=== PATIENT | male | born 1935 | race Caucasian/White ===

== ENCOUNTER 2019-11-27 13:14 | Inpatient (IN) | payer MEDICARE, BC ==
[2019-11-27] MEDS ORDERED: Aspirin 81 MG Tab.Chew PO ONE (13:28)
--- NOTE | 2019-11-27 13:32 | EDM.PDOC ---
ED HPI GENERAL MEDICAL PROBLEM - General Chief Complaint: Chest Pain Stated Complaint: [facility] Time Seen by Provider: 11/27/19 13:29 Source of Information: Reports: Patient History Limitations: Reports: No Limitations - History of Present Illness INITIAL COMMENTS - FREE TEXT/NARRATIVE: pt got very dizzy. He felt like his heart was racing and he has not had that in the past. He has had heart attacks in the past. 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 Onset: Today, Sudden, Other ( started mid morning. ) Duration: Hour(s): Location: Reports: Chest Associated Symptoms: Reports: Chest Pain, Other ( rapid heart beat. ) denies Pain Score (Numeric/FACES): 0 - Related Data Allergies Allergy/AdvReac Type Severity Reaction Status Date / Time No Known Allergies Allergy Verified 11/27/19 13:24 Home Meds: Home Meds Acetaminophen/HYDROcodone [HYDROcodone-Acetaminophen 5-500] 5 - 325 mg PO Q4H PRN 06/13/14 [History] Multivitamin [Multi-Vitamin Daily] 1 tab PO DAILY 06/13/14 [History] Omeprazole [priLOSEC OTC] 20 mg PO DAILY 06/13/14 [History] Zolpidem [Ambien] 10 mg PO BEDTIME 06/13/14 [History] Aspirin [Children's Aspirin] 81 mg PO DAILY 07/13/15 [History] Cyanocobalamin (Vitamin B-12) [Vitamin B-12] 500 mcg PO DAILY 07/13/15 [History] Cranberry Conc/Ascorbic Acid [Cranberry Concentrate Softgel] 1 cap PO DAILY [History] Past Medical History HEENT History: Reports: Other (See Below) Other HEENT History: CA, 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 Cardiovascular History: Reports: [place] Gastrointestinal History: Reports: GERD Genitourinary History: Reports: None Musculoskeletal History: Reports: Arthritis Oncologic (Cancer) History: Reports: Prostate Other Oncologic History: eye right, skin - Infectious Disease History Infectious Disease History: Reports: Chicken Pox, Measles, Mumps - Past Surgical History Head Surgeries/Procedures: Reports: None HEENT Surgical History: Reports: Cataract Surgery Other HEENT Surgeries/Procedures: tumor behind right eye removed Cardiovascular Surgical History: Reports: None GI Surgical History: Reports: Appendectomy, Cholecystectomy, Hernia, Inguinal Male Surgical History: Reports: Other (See Below) Other Male Surgeries/Procedures: prostate removal due to cancer. sphincter 800 implant Musculoskeletal Surgical History: Reports: None Social & Family History - Family History Family Medical History: Noncontributory - Caffeine Use Caffeine Use: Reports: Coffee ED ROS GENERAL - Review of Systems Review Of Systems: See Below Constitutional: Reports: Weakness, Other (pt has nearly passed out because of weakness) HEENT: Reports: No Symptoms Respiratory: Reports: Shortness of Breath Cardiovascular: Reports: Chest Pain, Palpitations, Other (pt had a near syncope episode. ) Endocrine: Reports: No Symptoms GI/Abdominal: Reports: No Symptoms : Reports: No Symptoms Musculoskeletal: Reports: No Symptoms Skin: Reports: No Symptoms ED EXAM, GENERAL - Physical Exam Exam: See Below Free Text/Narrative:: t arrived with a history of several hours of rapid heart beat. He felt very weak and he nearly passed out; Exam Limited By: No Limitations General Appearance: Alert, Mild Distress, Other (pt did have a fairly brief episode of upper abdomanal pain and left chest pain. ) Ears: Normal TMs Nose: Normal Inspection Throat/Mouth: Normal Inspection Head: Atraumatic Neck: Normal Inspection Respiratory/Chest: Other (pt did feel sob when his heart was so rapid. ) Cardiovascular: Irregularly Irregular, Other ( rate is 146) GI/Abdominal: Soft, Non-Tender (Male) Exam: Deferred Rectal (Males) Exam: Deferred Back Exam: Normal Inspection Extremities: Normal Inspection Neurological: Alert, Oriented, Normal Cognition, Other (pt is very upset regarding his being in hospice. ) Psychiatric: Anxious Course - Vital Signs Last Recorded V/S: Last Vital Signs Temp 35.9 C 11/27/19 13:22 Pulse 59 L 11/27/19 15:05 Resp 10 L 11/27/19 15:05 BP 123/78 11/27/19 15:05 Pulse Ox 90 L 11/27/19 15:05 - Orders/Labs/Meds Orders: Active Orders 24 hr Category Date Time Status EKG Documentation Completion [RC] ASDIRECTED Care 11/27/19 13:28 Active EKG Documentation Completion [RC] ASDIRECTED Care 11/27/19 14:20 Active UA W/MICROSCOPIC [URIN] Urgent Lab 11/27/19 13:25 Ordered Sodium Chloride 0.9% [Normal Saline] 1,000 ml Med 11/27/19 13:30 Active IV ASDIRECTED EKG 12 Lead [EK] Routine Ther 11/27/19 13:28 Ordered EKG 12 Lead [EK] Routine Ther 11/27/19 14:20 Ordered Medication Orders Sodium Chloride (Normal Saline) 1,000 mls @ 500 mls/hr IV ASDIRECTED LEANDRO Last Admin: 11/27/19 13:45 Dose: 500 mls/hr Labs: Laboratory Tests 11/27/19 11/27/19 11/27/19 Range/Units 13:35 13:35 13:35 WBC 4.7 (4.5-11.0) K/uL RBC 4.29 L (4.30-5.90) M/uL Hgb 13.5 (12.0-15.0) g/dL Hct 42.2 (40.0-54.0) % MCV 98 (80-98) fL MCH 32 H (27-31) pg MCHC 32 (32-36) % Plt Count 163 (150-400) K/uL Neut % (Auto) 77 H (36-66) % Lymph % (Auto) 15 L (24-44) % [place] % (Auto) 8 H (2-6) % Eos % (Auto) 1 L (2-4) % Baso % (Auto) 0 (0-1) % Sodium 140 (140-148) mmol/L Potassium 4.3 (3.6-5.2) mmol/L Chloride 104 (100-108) mmol/L Carbon Dioxide 27 (21-32) mmol/L Anion Gap 8.8 (5.0-14.0) mmol/L BUN 17 (7-18) mg/dL Creatinine 0.9 (0.8-1.3) mg/dL Est Cr Clr Drug Dosing 62.93 mL/min Estimated GFR (MDRD) > 60 (>60) Glucose 90 (74-106) mg/dL Calcium 8.4 L (8.5-10.1) mg/dL Total Bilirubin 0.6 (0.2-1.0) mg/dL AST 16 (15-37) U/L ALT 14 (12-78) U/L Alkaline Phosphatase 60 (46-116) U/L Troponin I 0.055 (0.000-0.056) ng/mL NT-Pro-B Natriuret Pep (5-450) pg/mL Total Protein 6.6 (6.4-8.2) g/dL Albumin 3.4 (3.4-5.0) g/dL Globulin 3.2 (2.3-3.5) g/dL Albumin/Globulin Ratio 1.1 L (1.2-2.2) TSH, Ultra Sensitive 0.716 (0.358-3.740) uIU/mL 11/27/19 11/27/19 Range/Units 13:35 15:17 WBC (4.5-11.0) K/uL RBC (4.30-5.90) M/uL Hgb (12.0-15.0) g/dL Hct (40.0-54.0) % MCV (80-98) fL MCH (27-31) pg MCHC (32-36) % Plt Count (150-400) K/uL Neut % (Auto) (36-66) % Lymph % (Auto) (24-44) % [place] % (Auto) (2-6) % Eos % (Auto) (2-4) % Baso % (Auto) (0-1) % Sodium (140-148) mmol/L Potassium (3.6-5.2) mmol/L Chloride (100-108) mmol/L Carbon Dioxide (21-32) mmol/L Anion Gap (5.0-14.0) mmol/L BUN (7-18) mg/dL Creatinine (0.8-1.3) mg/dL Est Cr Clr Drug Dosing mL/min Estimated GFR (MDRD) (>60) Glucose (74-106) mg/dL Calcium (8.5-10.1) mg/dL Total Bilirubin (0.2-1.0) mg/dL AST (15-37) U/L ALT (12-78) U/L Alkaline Phosphatase (46-116) U/L Troponin I 0.099 H* (0.000-0.056) ng/mL NT-Pro-B Natriuret Pep 526 H (5-450) pg/mL Total Protein (6.4-8.2) g/dL Albumin (3.4-5.0) g/dL Globulin (2.3-3.5) g/dL Albumin/Globulin Ratio (1.2-2.2) TSH, Ultra Sensitive (0.358-3.740) uIU/mL Meds: Medications Generic Name Dose Route Start Last Admin Trade Name Johnathan PRN Reason Stop Dose Admin Sodium Chloride 1,000 mls @ 500 mls/hr 11/27/19 13:30 11/27/19 13:45 Normal Saline IV 500 mls/hr ASDIRECTED LEANDRO Administration Discontinued Medications Generic Name Dose Route Start Last Admin Trade Name Johnathan PRN Reason Stop Dose Admin Aspirin 324 mg 11/27/19 13:28 11/27/19 13:46 Aspirin PO 11/27/19 13:29 324 mg ONETIME ONE Administration Diltiazem HCl 7.5 mg 11/27/19 13:34 11/27/19 13:57 Diltiazem IVPUSH 11/27/19 13:35 Not Given ONETIME ONE - Re-Assessments/Exams Free Text/Narrative Re-Assessment/Exam: 11/27/19 15:12 pt was found to be in atrial fib at 146. His bps were on the low side. He was given fluids and cardizem was ordered. Before it was given he converted to a sinus rhythm. pt has no further discomfort . His trop was found to be .055 11/27/19 15:54 second trop was .099-- He will be admitted and followed here. Departure - Departure Time of Disposition: 15:54 Disposition: Admitted As Inpatient 67 Condition: Fair Clinical Impression: Atrial fib/flutter, transient, Elevated troponin Referrals: PCP,None [Primary Care Provider] - Forms: ED Department Discharge Care Plan Goals: admit to Dr Simpson Sepsis Event Note - Evaluation Sepsis Screening Result: No Definite Risk - Focused Exam Vital Signs: Vital Signs Temp Pulse Resp BP Pulse Ox 11/27/19 15:05 59 L 10 L 123/78 90 L 11/27/19 14:45 60 12 114/68 96 11/27/19 13:22 35.9 C 146 H 37 H 117/73 99 Date Exam was Performed: 11/27/19 Time Exam was Performed: 15:54 - My Orders Last 24 Hours: My Active Orders 11/27/19 13:25 UA W/MICROSCOPIC [URIN] Urgent 11/27/19 13:28 EKG Documentation Completion [RC] ASDIRECTED EKG 12 Lead [EK] Routine 11/27/19 13:30 Sodium Chloride 0.9% [Normal Saline] 1,000 ml IV ASDIRECTED 11/27/19 14:20 EKG Documentation Completion [RC] ASDIRECTED EKG 12 Lead [EK] Routine - Assessment/Plan Last 24 Hours: My Active Orders 11/27/19 13:25 UA W/MICROSCOPIC [URIN] Urgent 11/27/19 13:28 EKG Documentation Completion [RC] ASDIRECTED EKG 12 Lead [EK] Routine 11/27/19 13:30 Sodium Chloride 0.9% [Normal Saline] 1,000 ml IV ASDIRECTED 11/27/19 14:20 EKG Documentation Completion [RC] ASDIRECTED EKG 12 Lead [EK] Routine
[2019-11-27] MEDS: Sodium Chloride 0.9% 1,000 ML IV SCH ×2 (13:45→18:12)
[2019-11-27] MEDS: Diltiazem 25 MG/5 ML SDV IVPUSH ONE ×2 (13:48→13:57)
--- NOTE | 2019-11-27 14:47 | CRLCR ---
INDICATIONS: Shortness of breath and rapid heart rate. TECHNIQUE: Chest 2 frontal views. COMPARISON: None available. FINDINGS: No pneumothorax, pleural effusion or airspace consolidation. Suspected emphysema and sequela of prior granulomatous disease. Cardiac and mediastinal contours are within normal limits. Upper abdomen and osseous structures as imaged show no acute abnormality. Bone demineralization and degenerative changes. IMPRESSION: No evidence of acute cardiopulmonary disease. Dictated by Adalberto Ventura MD @ 11/27/2019 2:46:21 PM Dictated by: Adalberto Ventura MD @ 11/27/2019 14:46:39 (Electronically Signed)
--- NOTE | 2019-11-27 17:19 | PCM.HP.2 ---
H&P History of Present Illness - General Date of Service: 11/27/19 Source of Information: Patient, EMS, EMS Notes Reviewed History Limitations: Reports: No Limitations - History of Present Illness Initial Comments - Free Text/Narative: This morning he got up at 9 AM and had severe shortness of breath and generalized weakness. He sat for a while then fell asleep for 1/2 hr. When he woke up he was still weak and finally called the EMS and was brought into the ER. Upon arrival he was found to be in Atrial fib with a raped heart rate and Hypotension. He then converted spontaneously. His , Sherron, is in the NH and he signed her in to hospice care and he has been thinking he make the wrong decision and has been upset. He had sharp chest pain with nausea. Onset of Symptoms: Reports: Today, Sudden Duration of Symptoms: Reports: Hour(s): Worsens with: Reports: Movement Associated Symptoms: Reports: Shortness of Breath, Weakness denies Pain Score (Numeric/FACES): 0 - Related Data Allergies/Adverse Reactions: Allergies Allergy/AdvReac Type Severity Reaction Status Date / Time No Known Allergies Allergy Verified 11/27/19 13:24 Home Medications: Home Meds Acetaminophen/HYDROcodone [HYDROcodone-Acetaminophen 5-500] 5 - 325 mg PO Q4H PRN 06/13/14 [History] Multivitamin [Multi-Vitamin Daily] 1 tab PO DAILY 06/13/14 [History] Omeprazole [priLOSEC OTC] 20 mg PO DAILY 06/13/14 [History] Zolpidem [Ambien] 10 mg PO BEDTIME 06/13/14 [History] Aspirin [Children's Aspirin] 81 mg PO DAILY 07/13/15 [History] Cyanocobalamin (Vitamin B-12) [Vitamin B-12] 500 mcg PO DAILY 07/13/15 [History] Cranberry Conc/Ascorbic Acid [Cranberry Concentrate Softgel] 1 cap PO DAILY [History] Past Medical History HEENT History: Reports: Other (See Below) Other HEENT History: CA, 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 Cardiovascular History: Reports: [place] Gastrointestinal History: Reports: GERD Genitourinary History: Reports: None Musculoskeletal History: Reports: Arthritis Psychiatric History: Reports: Anxiety, Depression Oncologic (Cancer) History: Reports: Prostate Other Oncologic History: eye right, skin - Infectious Disease History Infectious Disease History: Reports: Chicken Pox, Measles, Mumps - Past Surgical History Head Surgeries/Procedures: Reports: None HEENT Surgical History: Reports: Cataract Surgery Other HEENT Surgeries/Procedures: tumor behind right eye removed Cardiovascular Surgical History: Reports: None GI Surgical History: Reports: Appendectomy, Cholecystectomy, Hernia, Inguinal Male Surgical History: Reports: Other (See Below) Other Male Surgeries/Procedures: prostate removal due to cancer. sphincter 800 implant Musculoskeletal Surgical History: Reports: None Social & Family History - Family History Family Medical History: Noncontributory - Tobacco Use Smoking Status *Q: Never Smoker Second Hand Smoke Exposure: No - Caffeine Use Caffeine Use: Reports: Coffee - Recreational Drug Use Recreational Drug Use: No H&P Review of Systems - Review of Systems: Review Of Systems: See Below General: Reports: Weakness Pulmonary: Reports: Shortness of Breath, Pleuritic Chest Pain Cardiovascular: Reports: Chest Pain, Dyspnea on Exertion Gastrointestinal: Reports: Nausea Genitourinary: Reports: No Symptoms Musculoskeletal: Reports: No Symptoms Skin: Reports: No Symptoms Psychiatric: Reports: Anxiety Neurological: Reports: Weakness Exam - Exam Exam: See Below - Vital Signs Vital Signs: Last Vital Signs Temp 96.7 F 11/27/19 13:22 Pulse 57 L 11/27/19 16:05 Resp 17 11/27/19 16:05 BP 138/71 11/27/19 16:05 Pulse Ox 100 11/27/19 16:05 Weight: 155 lb - Exam General: Alert, Oriented, 4 HEENT: PERRLA, Hearing Intact, Mucosa Moist & [place], Nares Patent, Normal Nasal Septum, Posterior Pharynx Clear, Conjunctiva Clear, EOMI, EACs Clear, TMs Clear Neck: Supple, Trachea Midline, 2 Lungs: Clear to Auscultation, Normal Respiratory Effort Cardiovascular: Regular Rate, Regular Rhythm GI/Abdominal Exam: Normal Bowel Sounds, Soft, Non-Tender, No Organomegaly, No Distention, No Abnormal Bruit, No Mass, Pelvis Stable Back Exam: Normal Inspection, Full Range of Motion, NT Extremities: Normal Inspection, Normal Range of Motion, Non-Tender, No Pedal Edema, Normal Capillary Refill Peripheral Pulses: 1+: Radial (L), Radial (R) Skin: Warm, Dry, Intact Neurological: Reflexes Equal Bilateral Neuro Extensive - Mental Status: Alert, Oriented x3, Normal Mood/Affect, Normal Cognition, Memory Intact Neuro Extensive - Motor, Sensory, Reflexes: CN II-XII Intact, Normal Gait, Normal Reflexes DTR: 1+: Bicep (L), Bicep (R), 3+: Achilles (R) Psychiatric: Alert, Normal Affect - Patient Data Lab Results Last 24 hrs: Laboratory Results - last 24 hr 11/27/19 11/27/19 11/27/19 Range/Units 13:25 13:35 13:35 WBC 4.7 (4.5-11.0) K/uL RBC 4.29 L (4.30-5.90) M/uL Hgb 13.5 (12.0-15.0) g/dL Hct 42.2 (40.0-54.0) % MCV 98 (80-98) fL MCH 32 H (27-31) pg MCHC 32 (32-36) % Plt Count 163 (150-400) K/uL Neut % (Auto) 77 H (36-66) % Lymph % (Auto) 15 L (24-44) % [place] % (Auto) 8 H (2-6) % Eos % (Auto) 1 L (2-4) % Baso % (Auto) 0 (0-1) % Sodium 140 (140-148) mmol/L Potassium 4.3 (3.6-5.2) mmol/L Chloride 104 (100-108) mmol/L Carbon Dioxide 27 (21-32) mmol/L Anion Gap 8.8 (5.0-14.0) mmol/L BUN 17 (7-18) mg/dL Creatinine 0.9 (0.8-1.3) mg/dL Est Cr Clr Drug Dosing 62.93 mL/min Estimated GFR (MDRD) > 60 (>60) Glucose 90 (74-106) mg/dL Calcium 8.4 L (8.5-10.1) mg/dL Total Bilirubin 0.6 (0.2-1.0) mg/dL AST 16 (15-37) U/L ALT 14 (12-78) U/L Alkaline Phosphatase 60 (46-116) U/L Troponin I (0.000-0.056) ng/mL NT-Pro-B Natriuret Pep (5-450) pg/mL Total Protein 6.6 (6.4-8.2) g/dL Albumin 3.4 (3.4-5.0) g/dL Globulin 3.2 (2.3-3.5) g/dL Albumin/Globulin Ratio 1.1 L (1.2-2.2) TSH, Ultra Sensitive 0.716 (0.358-3.740) uIU/mL Urine Color Yellow (YELLOW) Urine Appearance Clear (CLEAR) Urine pH 6.0 (5.0-8.0) Ur Specific [place] 1.020 (1.008-1.030) Urine Protein Negative (NEGATIVE) mg/dL Urine Glucose (UA) Negative (NEGATIVE) mg/dL Urine Ketones 40 H (NEGATIVE) mg/dL Urine Occult Blood Trace-intact H (NEGATIVE) Urine Nitrite Negative (NEGATIVE) Urine Bilirubin Negative (NEGATIVE) Urine Urobilinogen 0.2 (0.2-1.0) EU/dL Ur Leukocyte Esterase Negative (NEGATIVE) Urine RBC Not seen (0-5) Urine WBC Not seen (0-5) Ur Epithelial Cells Rare Amorphous Sediment Not seen Urine Bacteria Rare Urine Mucus Not seen 11/27/19 11/27/19 11/27/19 Range/Units 13:35 13:35 15:17 WBC (4.5-11.0) K/uL RBC (4.30-5.90) M/uL Hgb (12.0-15.0) g/dL Hct (40.0-54.0) % MCV (80-98) fL MCH (27-31) pg MCHC (32-36) % Plt Count (150-400) K/uL Neut % (Auto) (36-66) % Lymph % (Auto) (24-44) % [place] % (Auto) (2-6) % Eos % (Auto) (2-4) % Baso % (Auto) (0-1) % Sodium (140-148) mmol/L Potassium (3.6-5.2) mmol/L Chloride (100-108) mmol/L Carbon Dioxide (21-32) mmol/L Anion Gap (5.0-14.0) mmol/L BUN (7-18) mg/dL Creatinine (0.8-1.3) mg/dL Est Cr Clr Drug Dosing mL/min Estimated GFR (MDRD) (>60) Glucose (74-106) mg/dL Calcium (8.5-10.1) mg/dL Total Bilirubin (0.2-1.0) mg/dL AST (15-37) U/L ALT (12-78) U/L Alkaline Phosphatase (46-116) U/L Troponin I 0.055 0.099 H* (0.000-0.056) ng/mL NT-Pro-B Natriuret Pep 526 H (5-450) pg/mL Total Protein (6.4-8.2) g/dL Albumin (3.4-5.0) g/dL Globulin (2.3-3.5) g/dL Albumin/Globulin Ratio (1.2-2.2) TSH, Ultra Sensitive (0.358-3.740) uIU/mL Urine Color (YELLOW) Urine Appearance (CLEAR) Urine pH (5.0-8.0) Ur Specific [place] (1.008-1.030) Urine Protein (NEGATIVE) mg/dL Urine Glucose (UA) (NEGATIVE) mg/dL Urine Ketones (NEGATIVE) mg/dL Urine Occult Blood (NEGATIVE) Urine Nitrite (NEGATIVE) Urine Bilirubin (NEGATIVE) Urine Urobilinogen (0.2-1.0) EU/dL Ur Leukocyte Esterase (NEGATIVE) Urine RBC (0-5) Urine WBC (0-5) Ur Epithelial Cells Amorphous Sediment Urine Bacteria Urine Mucus Result Diagrams: 11/27/19 13:35 11/27/19 13:35 Sepsis Event Note - Evaluation Sepsis Screening Result: No Definite Risk - Focused Exam Vital Signs: Vital Signs Temp Pulse Resp BP Pulse Ox 11/27/19 16:05 57 L 17 138/71 100 11/27/19 15:35 58 L 16 140/71 11/27/19 15:05 59 L 10 L 123/78 90 L 11/27/19 14:45 60 12 114/68 96 11/27/19 13:22 96.7 F 146 H 37 H 117/73 99 Date Exam was Performed: 11/27/19 Time Exam was Performed: 17:13 Problem List Initiated/Reviewed/Updated: Yes Orders Last 24hrs: Active Orders 24 hr Category Date Time Status EKG Documentation Completion [RC] ASDIRECTED Care 11/27/19 13:28 Active EKG Documentation Completion [RC] ASDIRECTED Care 11/27/19 14:20 Active Sodium Chloride 0.9% [Normal Saline] 1,000 ml Med 11/27/19 13:30 Active IV ASDIRECTED EKG 12 Lead [EK] Routine Ther 11/27/19 13:28 Ordered EKG 12 Lead [EK] Routine Ther 11/27/19 14:20 Ordered Medication Orders Sodium Chloride (Normal Saline) 1,000 mls @ 500 mls/hr IV ASDIRECTED LEANDRO Last Admin: 11/27/19 13:45 Dose: 500 mls/hr Assessment/Plan Comment:: Assessment/Plan: #1. Angina with Atrial fib. converted to NSR with elevation of Trop. I will admit him to the CCU and get a Lexiscan stress test tomorrow. Will alsok repeat the Trop in 8 hours. #2. Insomnia. uses Zolpidem for sleep aid. #3. Left foot pain. uses hydrocodone for pain relief. #4. GERD: Uses omeprazole for relief.
[2019-11-27] MEDS: Acetaminophen/HYDROcodone 325-5 MG Tab PO PRN (20:46)
[2019-11-27] MEDS ORDERED: Zolpidem 5 MG Tab PO SCH (21:00)
[2019-11-28] MEDS: Acetaminophen/HYDROcodone 325-5 MG Tab PO PRN ×2 (02:15→07:14)
[2019-11-28] MEDS ORDERED: Aminophylline 250 MG/10 ML SDV IVPUSH PRN (08:18)
[2019-11-28] MEDS ORDERED: Aspirin 81 MG Tab.EC PO SCH (09:00)
[2019-11-28] MEDS ORDERED: CRANBERRY PO SCH (09:00)
--- NOTE | 2019-11-28 10:59 | STRESS ---
DATE OF SERVICE: 11/28/2019 INDICATION: Jayda is an 83-year-old male, who came into the emergency room yesterday having angina, a rapid heart rate and was in atrial fibrillation. He has never had a similar problem before. He was in significant amount of stress, as the decision is made for his and put her on hospice. A Lexiscan stress test was advised. PROCEDURE IN DETAIL: The Lexiscan stress test was done. The standard protocol was followed. The resting electrocardiogram showed a sinus rate and rhythm. He was monitored throughout the entire time of exercise and rest. Lexiscan was given 0.4 mg in 5 mL followed by saline flush, followed by the Cardiolite given IV followed by a flush of saline. He was asymptomatic throughout the entire exercise and rest portion. The heart rate was 59 at the beginning of the test. At the end of the test, the heart rate was 85. Initial blood pressure was 158/88. At stage I, blood pressure was 161/76. Upon recovery at the end of 5 minutes, blood pressure was 143/88. There were no ST-segment or T-wave changes noted throughout the entire time. The accuracy of this test will be determined by the nuclear Medicine portion, which the report is pending. Dx. Angina with episode of Atrial Fib.R/O ASHD causing the Atrial fib or Dx. of Broken heart syndrome. Jeferson Simpson MD /[id number] MONA
[2019-11-28 13:05] VITALS: BP 139/65; PULSE 57
--- NOTE | 2019-11-28 13:34 | CRLNM ---
MYOCARDIAL PERFUSION SCAN 11/28/2019 CLINICAL HISTORY: 83-year-old male. Chest pain. Atrial fibrillation. TECHNIQUE: (Resting SPECT and stress gated SPECT with wall motion and ejection fraction) Stress: Pharmacologic - Lexiscan (0.4 mg) (IV) Dose (Stress/Rest): 30.5 mCi/10.9 mCi Tc-99m Sestamibi Tetrofosmin (IV) Comparison: None FINDINGS: There is good uptake of activity by the left ventricle. No left ventricular enlargement is noted. There is mild soft tissue attenuation. No other significant fixed or reversible defects are identified. The gated images demonstrate a normal left ventricular ejection fraction of approximately 65 percent. No regional wall motion these are identified. IMPRESSION: 1. There is no evidence of significant myocardial ischemia or infarction. 2. Normal left ventricular ejection fraction of approximately 65 percent. MARY KOHLER M.D. Transcribed: 12:26 p.m. [email or web address] PT/Dictated by: Mary Kohler MD @ 11/28/2019 11:09:00 AM (Electronically Signed)
--- NOTE | 2019-11-28 17:10 | PCM.PN ---
- General Info Date of Service: 11/28/19 Subjective Update: Had a Stress test this morning and was negative with an EF of 65%. He has no complaints. Functional Status: Reports: Pain Controlled - Review of Systems General: Reports: No Symptoms HEENT: Reports: No Symptoms Pulmonary: Reports: No Symptoms Cardiovascular: Reports: No Symptoms Gastrointestinal: Reports: No Symptoms Genitourinary: Reports: No Symptoms Musculoskeletal: Reports: No Symptoms Skin: Reports: No Symptoms Neurological: Reports: No Symptoms Psychiatric: Reports: No Symptoms - Patient Data Vitals - Most Recent: Last Vital Signs Temp 97.5 F 11/28/19 06:00 Pulse 57 L 11/28/19 12:00 Resp 12 11/28/19 12:00 BP 139/65 11/28/19 12:00 Pulse Ox 95 11/28/19 12:00 Weight - Most Recent: 155 lb I&O - Last 24 Hours: Intake & Output 11/28/19 11/28/19 11/28/19 06:59 14:59 22:59 Intake Total 600 Output Total 250 150 Balance -250 450 Med Orders - Current: Current Medications Discontinued Medications Hydrocodone Bitart/Acetaminophen ([place] 325-5 Mg) 1 tab PO Q4H PRN PRN Reason: PAIN Last Admin: 11/28/19 07:14 Dose: 1 tab Aminophylline (Aminophylline) 125 mg IVPUSH ONETIME PRN PRN Reason: Other Stop: 11/28/19 10:00 Aspirin (Aspirin) 324 mg PO ONETIME ONE Stop: 11/27/19 13:29 Last Admin: 11/27/19 13:46 Dose: 324 mg Aspirin (Halfprin) 81 mg PO DAILY [facility] Last Admin: 11/28/19 09:38 Dose: 81 mg Diltiazem HCl (Diltiazem) 7.5 mg IVPUSH ONETIME ONE Stop: 11/27/19 13:35 Last Admin: 11/27/19 13:57 Dose: Not Given Sodium Chloride (Normal Saline) 1,000 mls @ 0 mls/hr IV ASDIRECTED [facility] Last Infusion: 11/27/19 18:59 Dose: 0 mls/hr Cranberry (Concentrate Ptom) 0 cap PO DAILY [facility] Last Admin: 11/28/19 09:40 Dose: Not Given Regadenoson (Lexiscan) 0.4 mg IVPUSH ONETIME ONE Stop: 11/28/19 08:46 Last Admin: 11/28/19 08:46 Dose: 0.4 mg Zolpidem Tartrate (Ambien) 10 mg PO BEDTIME [facility] Last Admin: 11/27/19 20:45 Dose: 10 mg - Exam General: Alert, Oriented HEENT: Pupils Equal, Pupils Reactive, EOMI, Mucous Membr. Moist/[place] Neck: Supple Lungs: Clear to Auscultation, Normal Respiratory Effort Cardiovascular: Regular Rate, Regular Rhythm GI/Abdominal Exam: Normal Bowel Sounds, Soft, Non-Tender, No Organomegaly, No Distention, No Abnormal Bruit, No Mass, Pelvis Stable Extremities: Normal Inspection, Normal Range of Motion, Non-Tender, No Pedal Edema, Normal Capillary Refill Peripheral Pulses: 1+: Radial (L), Radial (R) Skin: Warm, Dry, Intact Neurological: No New Focal Deficit Psy/Mental Status: Alert, Normal Affect, Normal Mood Sepsis Event Note - Evaluation Sepsis Screening Result: No Definite Risk - Focused Exam Vital Signs: Vital Signs Temp Pulse Resp BP Pulse Ox 11/28/19 12:00 57 L 12 139/65 95 11/28/19 08:32 59 L 16 158/88 H 97 11/28/19 06:00 97.5 F 55 L 23 H 150/77 H 94 L Date Exam was Performed: 11/28/19 Time Exam was Performed: 17:03 - Problem List Review Problem List Initiated/Reviewed/Updated: Yes - My Orders Last 24 Hours: My Active Orders 11/27/19 17:29 Bedrest Bathroom Privileges [RC] ASDIRECTED Height and Weight [RC] DAILY Up With Assistance [RC] ASDIRECTED Resuscitation Status Routine 11/27/19 17:31 Patient Status [ADT] Routine Oxygen Therapy [RC] PRN VTE/DVT Education [RC] Per Unit Routine Vital Signs [RC] Q4H 11/27/19 17:34 Cardiac Monitoring [RC] Q6H Intake and Output [RC] QSHIFT - Plan Plan:: Assessment/Plan: #1. Angina with Atrial fib. converted to NSR with elevation of Trop. Stress test was neg with Lexiscan showed no evidence of a RI and no evidence of an old RI as well. Will discharge home. #2. Insomnia. uses Zolpidem for sleep aid. #3. Left foot pain. uses hydrocodone for pain relief. #4. GERD: Uses omeprazole for relief.
--- NOTE | 2019-11-28 17:21 | PCM.DCSUM1 ---
Discharge Summary - Hospital Course Brief History: Yesterday he got up at 9 AM and had severe shortness of breath and generalized weakness. He sat for a while then fell asleep for 1/2 hr. When he woke up he was still weak and finally called the EMS and was brought into the ER. Upon arrival he was found to be in Atrial fib with a raped heart rate and Hypotension. He then converted spontaneously. His , Sherron, is in the NH and he signed her in to hospice care and he has been thinking he make the wrong decision and has been upset. He had sharp chest pain with nausea. Onset of Symptoms: Reports: Today, Sudden Diagnosis: Stroke: No - Discharge Data Discharge Date: 11/21/19 Discharge Disposition: Home, Self-Care 01 Condition: Stable - Referral to Home Health Primary Care Physician: PCP None - Patient Summary/Data Hospital Course: Admitted to the CCU and monitored and was asymptotic. He had a stress test which was reported as normal with an EF of 65%. His trop was elevataed upon admission. Repeat was ordered but somehow missed and not done. He was discharged home in stable condition. Will follow up with him in 1 week or sooner if needed. - Patient Instructions Diet: Heart Healthy Diet Activity: As Tolerated Driving: May Drive Today Showering/Bathing: May Shower - Discharge Plan Home Medications: Home Meds Acetaminophen/HYDROcodone [HYDROcodone-Acetaminophen 5-500] 5 - 325 mg PO Q4H PRN 06/13/14 [History] Multivitamin [Multi-Vitamin Daily] 1 tab PO DAILY 06/13/14 [History] Omeprazole [priLOSEC OTC] 20 mg PO DAILY 06/13/14 [History] Zolpidem [Ambien] 10 mg PO BEDTIME 06/13/14 [History] Aspirin [Children's Aspirin] 81 mg PO DAILY 07/13/15 [History] Cyanocobalamin (Vitamin B-12) [Vitamin B-12] 500 mcg PO DAILY 07/13/15 [History] Cranberry Conc/Ascorbic Acid [Cranberry Concentrate Softgel] 1 cap PO DAILY [History] Patient Handouts: Atrial Fibrillation, [id number] Forms: ED Department Discharge Referrals: PCP,None [Primary Care Provider] - - Discharge Summary/Plan Comment DC Time >30 min.: No Discharge Summary/Plan Comment: Assessment/Plan: #1. Angina with Atrial fib. converted to NSR with elevation of Trop. Stress test was neg with Lexiscan showed no evidence of a OK and no evidence of an old OK as well. Will discharge home. #2. Insomnia. uses Zolpidem for sleep aid. #3. Left foot pain. uses hydrocodone for pain relief. #4. GERD: Uses omeprazole for relief. - General Info Date of Service: 11/28/19 Admission Dx/Problem (Free Text: Angina with history of atrial fib with self conversion. Functional Status: Reports: Pain Controlled - Review of Systems General: Reports: No Symptoms HEENT: Reports: No Symptoms Pulmonary: Reports: No Symptoms Cardiovascular: Reports: No Symptoms Gastrointestinal: Reports: No Symptoms Genitourinary: Reports: No Symptoms Musculoskeletal: Reports: No Symptoms Skin: Reports: No Symptoms Neurological: Reports: No Symptoms Psychiatric: Reports: No Symptoms - Patient Data Vitals - Most Recent: Last Vital Signs Temp 97.5 F 11/28/19 06:00 Pulse 57 L 11/28/19 12:00 Resp 12 11/28/19 12:00 BP 139/65 11/28/19 12:00 Pulse Ox 95 11/28/19 12:00 Weight - Most Recent: 155 lb I&O - Last 24 hours: Intake & Output 11/28/19 11/28/19 11/28/19 06:59 14:59 22:59 Intake Total 600 Output Total 250 150 Balance -250 450 Med Orders - Current: Current Medications Discontinued Medications Hydrocodone Bitart/Acetaminophen ([place] 325-5 Mg) 1 tab PO Q4H PRN PRN Reason: PAIN Last Admin: 11/28/19 07:14 Dose: 1 tab Aminophylline (Aminophylline) 125 mg IVPUSH ONETIME PRN PRN Reason: Other Stop: 11/28/19 10:00 Aspirin (Aspirin) 324 mg PO ONETIME ONE Stop: 11/27/19 13:29 Last Admin: 11/27/19 13:46 Dose: 324 mg Aspirin (Halfprin) 81 mg PO DAILY [facility] Last Admin: 11/28/19 09:38 Dose: 81 mg Diltiazem HCl (Diltiazem) 7.5 mg IVPUSH ONETIME ONE Stop: 11/27/19 13:35 Last Admin: 11/27/19 13:57 Dose: Not Given Sodium Chloride (Normal Saline) 1,000 mls @ 0 mls/hr IV ASDIRECTED [facility] Last Infusion: 11/27/19 18:59 Dose: 0 mls/hr Cranberry (Concentrate Ptom) 0 cap PO DAILY [facility] Last Admin: 11/28/19 09:40 Dose: Not Given Regadenoson (Lexiscan) 0.4 mg IVPUSH ONETIME ONE Stop: 11/28/19 08:46 Last Admin: 11/28/19 08:46 Dose: 0.4 mg Zolpidem Tartrate (Ambien) 10 mg PO BEDTIME [facility] Last Admin: 11/27/19 20:45 Dose: 10 mg - Exam General: Reports: Alert, Oriented HEENT: Reports: Pupils Equal, Pupils Reactive, EOMI, Mucous Membr. Moist/[place] Neck: Reports: Supple Lungs: Reports: Clear to Auscultation, Normal Respiratory Effort Cardiovascular: Reports: Regular Rate, Regular Rhythm GI/Abdominal Exam: Normal Bowel Sounds, Soft, Non-Tender, No Organomegaly, No Distention, No Abnormal Bruit, No Mass, Pelvis Stable Back Exam: Reports: Normal Inspection Extremities: Normal Inspection
== END 2019-11-28 14:49 | disposition home or self-care (01) | DRG 310 ==
LOC: JP.ED 13:14 → JP.ICU 17:31
PROVIDERS: ADMIT Internal Medicine; ATTEND Internal Medicine
DX: I48.91 Unspecified atrial fibrillation (principal); I48.92 Unspecified atrial flutter; R53.1 Weakness; R06.02 Shortness of breath; R79.89 Other specified abnormal findings of blood chemistry; K21.9 Gastro-esophageal reflux disease without esophagitis; M19.90 Unspecified osteoarthritis, unspecified site; F41.9 Anxiety disorder, unspecified; F32.9 Major depressive disorder, single episode, unspecified; Z85.840 Personal history of malignant neoplasm of eye; G47.00 Insomnia, unspecified; M79.672 Pain in left foot; I20.9 Angina pectoris, unspecified; I95.9 Hypotension, unspecified; Z79.899 Other long term (current) drug therapy; Z79.82 Long term (current) use of aspirin; Z85.46 Personal history of malignant neoplasm of prostate; Z85.828 Personal history of other malignant neoplasm of skin; Z90.49 Acquired absence of other specified parts of digestive tract; Z98.890 Other specified postprocedural states; Z90.79 Acquired absence of other genital organ(s); Z98.49 Cataract extraction status, unspecified eye; I25.2 Old myocardial infarction
CPT/HCPCS: 36415; 71045; 80053; 81001; 83880; 84443; 84484 ×2; 85025; 93005 ×2; A9270; J7030; 78452; 93010; 93017; 96360; 96361; 99284; 99285-25; A9500; J2785; J3490

== ENCOUNTER 2021-08-28 11:26 | Inpatient (IN) | payer MEDICARE, BC ==
--- NOTE | 2021-08-28 13:04 | EDM.PDOC ---
ED HPI GENERAL MEDICAL PROBLEM - General Chief Complaint: General Stated Complaint: FOUND ON FLOOR ABOUT 3 HOURS Time Seen by Provider: 08/28/21 12:00 Source of Information: Reports: Patient, EMS History Limitations: Reports: No Limitations - History of Present Illness INITIAL COMMENTS - FREE TEXT/NARRATIVE: 85-year-old male got up out of bed to go to the bathroom this morning and his knees buckled and he went to the floor. He feels weak all over. Developed a skin tear on his left arm but no other significant injury, some mild back discomfort. He is afraid he is unable to go home. No shortness of breath, no nausea or vomiting. Onset: Sudden (Fell out of bed this morning, managed to crawl to the kitchen for help) Duration: Hour(s): (Fell 2 hours ago) Location: Reports: Other (Some left shoulder discomfort, no real significant pain, most of his symptoms are just weakness) Associated Symptoms: Reports: Malaise, Weakness. Denies: Fever/Chills, Headaches, Nausea/Vomiting, Shortness of Breath, Syncope - Related Data Allergies Allergy/AdvReac Type Severity Reaction Status Date / Time No Known Allergies Allergy Verified 08/28/21 11:31 Home Meds: Home Meds Acetaminophen/HYDROcodone [HYDROcodone-Acetaminophen 5-500] 5 - 325 mg PO Q4H PRN 06/13/14 [History] Multivitamin [Multi-Vitamin Daily] 1 tab PO DAILY 06/13/14 [History] Omeprazole [priLOSEC OTC] 20 mg PO DAILY 06/13/14 [History] Zolpidem [Ambien] 10 mg PO BEDTIME 06/13/14 [History] Cyanocobalamin (Vitamin B-12) [Vitamin B-12] 500 mcg PO DAILY 07/13/15 [History] Cranberry Conc/Ascorbic Acid [Cranberry Concentrate Softgel] 1 cap PO DAILY 09/23/18 [History] Metoprolol Succinate [Toprol XL] 25 mg PO DAILY 08/28/21 [History] Rivaroxaban [Xarelto] 20 mg PO DAILY 08/28/21 [History] Verapamil [[place] SR] 1 tab PO DAILY 08/28/21 [History] Past Medical History HEENT History: Reports: Impaired Vision, Other (See Below) Other HEENT History: CA, 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 Cardiovascular History: Reports: Hypertension, [place], Pacemaker Respiratory History: Reports: SOB Gastrointestinal History: Reports: GERD Genitourinary History: Reports: Other (See Below) Musculoskeletal History: Reports: Arthritis Psychiatric History: Reports: Anxiety, Depression Oncologic (Cancer) History: Reports: Prostate Other Oncologic History: eye right, skin - Infectious Disease History Infectious Disease History: Reports: Chicken Pox, Influenza, Measles, Mumps - Past Surgical History Head Surgeries/Procedures: Reports: None HEENT Surgical History: Reports: Cataract Surgery Other HEENT Surgeries/Procedures: tumor behind right eye removed Cardiovascular Surgical History: Reports: None GI Surgical History: Reports: Appendectomy, Cholecystectomy, Hernia, Inguinal Male Surgical History: Reports: Prostatectomy, Other (See Below) Other Male Surgeries/Procedures: prostate removal due to cancer. sphincter 800 implant Musculoskeletal Surgical History: Reports: None Oncologic Surgical History: Reports: None Dermatological Surgical History: Reports: None Social & Family History - Family History Family Medical History: No Pertinent Family History - Tobacco Use Tobacco Use Status *Q: Never Tobacco User Second Hand Smoke Exposure: No - Caffeine Use Caffeine Use: Reports: Coffee - Recreational Drug Use Recreational Drug Use: No ED ROS GENERAL - Review of Systems Review Of Systems: See Below Constitutional: Reports: Malaise. Denies: Fever HEENT: Reports: No Symptoms Respiratory: Denies: Shortness of Breath Cardiovascular: Denies: Chest Pain, Palpitations GI/Abdominal: Denies: Abdominal Pain, Nausea, Vomiting Skin: Reports: Bruising (Bruises easily) Neurological: Reports: Weakness ED EXAM, GENERAL - Physical Exam Exam: See Below Exam Limited By: No Limitations General Appearance: Alert, No Apparent Distress Eye Exam: Bilateral Eye: Normal Inspection Head: Atraumatic Neck: Supple, Non-Tender Respiratory/Chest: No Respiratory Distress, Lungs Clear Cardiovascular: Regular Rate, Rhythm, No Murmur, Extra Beats GI/Abdominal: Soft, Non-Tender Extremities: Other (Superficial abrasion on the left elbow, no bony tenderness. Scattered bruises on the forearms bilaterally. Some soreness to palpation over the posterior left shoulder, no bony tenderness) Neurological: Alert, Oriented, No Motor/Sensory Deficits, Other (Diffusely weak but no asymmetry) Psychiatric: Normal Affect, Normal Mood Course - Vital Signs Last Recorded V/S: Last Vital Signs Temp 98 F 08/28/21 11:44 Pulse 71 08/28/21 11:44 Resp 17 08/28/21 11:44 BP 129/71 08/28/21 11:44 Pulse Ox 96 08/28/21 11:44 - Orders/Labs/Meds Orders: Medication Orders Acetaminophen (Acetaminophen 325 Mg Tab) 650 mg PO Q4H PRN PRN Reason: Pain (Mild 1-3)/fever Last Admin: 08/28/21 15:53 Dose: 650 mg Documented by: [place] Hydrocodone Bitart/Acetaminophen (Acetaminophen/Hydrocodone 325-5 Mg Tab) 1 tab PO Q4H PRN PRN Reason: Pain Cyanocobalamin (Cyanocobalamin (Vitamin B12) 1,000 Mcg Tab) 500 mcg PO DAILY [facility] Sodium Chloride (Normal Saline) 1,000 mls @ 125 mls/hr IV ASDIRECTED [facility] Stop: 08/28/21 23:29 Last Admin: 08/28/21 15:51 Dose: 125 mls/hr Documented by: [place] Lorazepam (Lorazepam 2 Mg/Ml Sdv) 0.5 mg IVPUSH Q4H PRN PRN Reason: Nausea/Vomiting Magnesium Hydroxide (Magnesium Hydroxide 400 Mg/5 Ml Susp 30 Ml Cup) 30 ml PO Q12H PRN PRN Reason: Constipation Melatonin (Melatonin 3 Mg Tab) 9 mg PO BEDTIME PRN PRN Reason: Sleep Metoprolol Succinate (Metoprolol Succinate 25 Mg Tab.Er) 25 mg PO DAILY [facility] Multivitamins/Minerals (Multivitamins With Iron/Calcium/Folic Acid/Minerals Tab) 1 tab PO DAILY [facility] Ondansetron HCl (Ondansetron 4 Mg Tab.Dis) 4 mg PO Q6H PRN PRN Reason: Nausea able to take PO Ondansetron HCl (Ondansetron 4 Mg/2 Ml Sdv) 4 mg IV Q6H PRN PRN Reason: Nausea/Vomiting Pantoprazole Sodium (Pantoprazole 40 Mg Tab.Cr) 40 mg PO ACBREAKFAST [facility] Rivaroxaban (Rivaroxaban 10 Mg Tab) 20 mg PO DAILY [facility] Senna/Docusate Sodium (Docusate Sodium/Sennosides 50-8.6 Mg Tab) 1 tab PO BID PRN PRN Reason: Constipation Verapamil HCl (Verapamil 120 Mg Tab.Er) 240 mg PO DAILY [facility] Zolpidem Tartrate (Zolpidem 5 Mg Tab) 10 mg PO BEDTIME [facility] Labs: Laboratory Tests 08/28/21 08/28/21 08/28/21 Range/Units 12:20 12:20 12:20 WBC 5.1 (4.5-11.0) K/uL RBC 4.20 L (4.30-5.90) M/uL Hgb 13.0 (12.0-15.0) g/dL Hct 40.0 (40.0-54.0) % MCV 95 (80-98) fL MCH 31 (27-31) pg MCHC 33 (32-36) % Plt Count 134 L (150-400) K/uL Neut % (Auto) 78.5 H (36-66) % Lymph % (Auto) 8.8 L (24-44) % [place] % (Auto) 12.7 H (2-6) % Eos % (Auto) 0.0 L (2-4) % Baso % (Auto) 0.0 (0-1) % Sodium 140 (140-148) mmol/L Potassium 4.5 (3.6-5.2) mmol/L Chloride 101 (100-108) mmol/L Carbon Dioxide 28 (21-32) mmol/L Anion Gap 10.7 (5.0-14.0) mmol/L BUN 20 H (7-18) mg/dL Creatinine 1.0 (0.8-1.3) mg/dL Est Cr Clr Drug Dosing 54.68 mL/min Estimated GFR (MDRD) > 60 (>60) Glucose 97 (74-106) mg/dL Calcium 8.0 L (8.5-10.1) mg/dL Creatine Kinase 669 H (39-308) U/L SARS-CoV-2 RNA (KATERIN) (NEGATIVE) 08/28/21 Range/Units 12:32 WBC (4.5-11.0) K/uL RBC (4.30-5.90) M/uL Hgb (12.0-15.0) g/dL Hct (40.0-54.0) % MCV (80-98) fL MCH (27-31) pg MCHC (32-36) % Plt Count (150-400) K/uL Neut % (Auto) (36-66) % Lymph % (Auto) (24-44) % [place] % (Auto) (2-6) % Eos % (Auto) (2-4) % Baso % (Auto) (0-1) % Sodium (140-148) mmol/L Potassium (3.6-5.2) mmol/L Chloride (100-108) mmol/L Carbon Dioxide (21-32) mmol/L Anion Gap (5.0-14.0) mmol/L BUN (7-18) mg/dL Creatinine (0.8-1.3) mg/dL Est Cr Clr Drug Dosing mL/min Estimated GFR (MDRD) (>60) Glucose (74-106) mg/dL Calcium (8.5-10.1) mg/dL Creatine Kinase (39-308) U/L SARS-CoV-2 RNA (KATERIN) Positive H (NEGATIVE) Meds: Medications Generic Name Dose Route Start Last Admin Trade Name Freq PRN Reason Stop Dose Admin Acetaminophen 650 mg 08/28/21 15:28 08/28/21 15:53 Acetaminophen 325 Mg Tab PO 650 mg Q4H PRN Administration Pain (Mild 1-3)/fever Hydrocodone Bitart/Acetaminophen 1 tab 08/28/21 15:28 Acetaminophen/Hydrocodone 325-5 Mg Tab PO Q4H PRN Pain Cyanocobalamin 500 mcg 08/29/21 09:00 Cyanocobalamin (Vitamin B12) 1,000 Mcg Tab PO DAILY [facility] Sodium Chloride 1,000 mls @ 125 mls/hr 08/28/21 15:28 08/28/21 15:51 Normal Saline IV 08/28/21 23:29 125 mls/hr ASDIRECTED [facility] Administration Lorazepam 0.5 mg 08/28/21 15:28 Lorazepam 2 Mg/Ml Sdv IVPUSH Q4H PRN Nausea/Vomiting Magnesium Hydroxide 30 ml 08/28/21 15:28 Magnesium Hydroxide 400 Mg/5 Ml Susp 30 Ml Cup PO Q12H PRN Constipation Melatonin 9 mg 08/28/21 15:28 Melatonin 3 Mg Tab PO BEDTIME PRN Sleep Metoprolol Succinate 25 mg 08/29/21 09:00 Metoprolol Succinate 25 Mg Tab.Er PO DAILY [facility] Multivitamins/Minerals 1 tab 08/29/21 09:00 Multivitamins With Iron/Calcium/Folic Acid/Minerals Tab PO DAILY [facility] Ondansetron HCl 4 mg 08/28/21 15:28 Ondansetron 4 Mg Tab.Dis PO Q6H PRN Nausea able to take PO Ondansetron HCl 4 mg 08/28/21 15:28 Ondansetron 4 Mg/2 Ml Sdv IV Q6H PRN Nausea/Vomiting Pantoprazole Sodium 40 mg 08/29/21 07:30 Pantoprazole 40 Mg Tab.Cr PO ACBREAKFAST [facility] Rivaroxaban 20 mg 08/29/21 09:00 Rivaroxaban 10 Mg Tab PO DAILY [facility] Senna/Docusate Sodium 1 tab 08/28/21 15:28 Docusate Sodium/Sennosides 50-8.6 Mg Tab PO BID PRN Constipation Verapamil HCl 240 mg 08/29/21 09:00 Verapamil 120 Mg Tab.Er PO DAILY [facility] Zolpidem Tartrate 10 mg 08/28/21 21:00 Zolpidem 5 Mg Tab PO BEDTIME [facility] - Re-Assessments/Exams Free Text/Narrative Re-Assessment/Exam: 08/28/21 16:21 CBC and BMP were obtained, both reassuring, his CPK however was elevated mildly at 669. Unfortunately despite being fully vaccinated, he was positive for coronavirus. His wound was cleaned, dressed, and the patient was attempted to stand and he was too weak to stand so will need admission. Dr. Apple of the hospitalist service was consulted and kindly agreed to see the patient for admission. Departure - Departure Time of Disposition: 15:10 Disposition: Admitted As Inpatient 67 Clinical Impression: COVID-19, Weakness, Skin tear of left upper extremity - Discharge Information Sepsis Event Note (ED) - Focused Exam Vital Signs: Vital Signs Temp Pulse Resp BP Pulse Ox 08/28/21 11:44 98 F 71 17 129/71 96 08/28/21 11:37 98 F 71 17 129/71 96
--- NOTE | 2021-08-28 15:00 | PCM.HP.2 ---
H&P History of Present Illness - General Date of Service: 08/28/21 Admit Problem/Dx: Admission Diagnosis/Problem Admission Diagnosis/Problem Weakness Source of Information: Patient, Provider History Limitations: Reports: No Limitations - History of Present Illness Initial Comments - Free Text/Narative: CC: I thought I had the flu HPI: Daniel presents to the emergency room today with weakness. He tried to get out of bed today and fell to the floor. He was too weak to get up and had to call to the kitchen to call for help. He reports 3 or 4 days of headache, nausea, diarrhea and progressive weakness. Appetite has been poor and strength has been declining. He has no energy. He reports significant diffuse myalgias. These have been the most impressive. He describes moderate achy back pain that radiates throughout the entirety of his back. It is a little better when he lays still and more intense when he moves around. Pain pills have helped a little bit. He did not have an obvious injury to his back before the pain started. No fevers or chills. Mild sore throat yesterday. No significant sinus congestion. No loss of taste or smell. Diarrhea was better today after being miserable for the last couple of days. No obvious Covid contacts. He was previously vaccinated. Work-up in the emergency room did reveal a positive Covid test. The patient is too weak to stand up and is not safe for discharge home. He does live alone. He is dehydrated and has mild rhabdomyolysis. - Related Data Allergies/Adverse Reactions: Allergies Allergy/AdvReac Type Severity Reaction Status Date / Time No Known Allergies Allergy Verified 08/28/21 11:31 Home Medications: Home Meds Acetaminophen/HYDROcodone [HYDROcodone-Acetaminophen 5-500] 5 - 325 mg PO Q4H PRN 06/13/14 [History] Multivitamin [Multi-Vitamin Daily] 1 tab PO DAILY 06/13/14 [History] Omeprazole [priLOSEC OTC] 20 mg PO DAILY 06/13/14 [History] Zolpidem [Ambien] 10 mg PO BEDTIME 06/13/14 [History] Cyanocobalamin (Vitamin B-12) [Vitamin B-12] 500 mcg PO DAILY 07/13/15 [History] Cranberry Conc/Ascorbic Acid [Cranberry Concentrate Softgel] 1 cap PO DAILY 09/23/18 [History] Metoprolol Succinate [Toprol XL] 25 mg PO DAILY 08/28/21 [History] Rivaroxaban [Xarelto] 20 mg PO DAILY 08/28/21 [History] Verapamil [Calan SR] 1 tab PO DAILY 08/28/21 [History] Past Medical History HEENT History: Reports: Impaired Vision, Other (See Below) Other HEENT History: CA, 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 Cardiovascular History: Reports: Hypertension, [place], Pacemaker Respiratory History: Reports: SOB Gastrointestinal History: Reports: GERD Genitourinary History: Reports: Other (See Below) Musculoskeletal History: Reports: Arthritis Psychiatric History: Reports: Anxiety, Depression Oncologic (Cancer) History: Reports: Prostate Other Oncologic History: eye right, skin - Infectious Disease History Infectious Disease History: Reports: Chicken Pox, Influenza, Measles, Mumps - Past Surgical History Head Surgeries/Procedures: Reports: None HEENT Surgical History: Reports: Cataract Surgery Other HEENT Surgeries/Procedures: tumor behind right eye removed Cardiovascular Surgical History: Reports: None GI Surgical History: Reports: Appendectomy, Cholecystectomy, Hernia, Inguinal Male Surgical History: Reports: Prostatectomy, Other (See Below) Other Male Surgeries/Procedures: prostate removal due to cancer. sphincter 800 implant Musculoskeletal Surgical History: Reports: None Oncologic Surgical History: Reports: None Dermatological Surgical History: Reports: None Social & Family History - Family History Family Medical History: No Pertinent Family History - Tobacco Use Tobacco Use Status *Q: Never Tobacco User Second Hand Smoke Exposure: No - Caffeine Use Caffeine Use: Reports: Coffee - Alcohol Use Alcohol Use History: No - Recreational Drug Use Recreational Drug Use: No H&P Review of Systems - Review of Systems: Review Of Systems: See Below Free Text/Narrative: A complete 12 point review of systems was obtained. Pertinent positives and negatives are noted in the history of present illness. All other systems were reviewed and were negative except as noted. Exam - Exam Exam: See Below - Vital Signs Vital Signs: Last Vital Signs Temp 36.6 C 08/28/21 11:44 Pulse 71 08/28/21 11:44 Resp 17 08/28/21 11:44 BP 129/71 08/28/21 11:44 Pulse Ox 96 08/28/21 11:44 Weight: 70.307 kg - Exam Quality Assessment: No: Supplemental Oxygen General: Alert, Oriented, Cooperative, Other (looks tired and mildly ill ). No: Mild Distress HEENT: Conjunctiva Clear. No: Mucosa Moist & [place]mele (dry), Scleral Icterus Neck: Supple, Trachea Midline. No: Lymphadenopathy, JVD Lungs: Clear to Auscultation, Normal Respiratory Effort Cardiovascular: Regular Rate, Irregular Rhythm. No: Systolic Murmur GI/Abdominal Exam: Normal Bowel Sounds, Soft, Non-Tender, No Distention Back Exam: Normal Inspection, Full Range of Motion Extremities: No Pedal Edema. No: Increased Warmth Skin: Warm, Dry, Ecchymosis (both forearms left > right ), Wound (abrasions on both elbows, right knee) Neuro Extensive - Mental Status: Alert, Oriented x3, Nl Response to Commands Neuro Extensive - Motor, Sensory, Reflexes: No: Dysarthria, Abnormal Motor, Tremor Psychiatric: Alert, Normal Affect - Patient Data Lab Results Last 24 hrs: Laboratory Results - last 24 hr 08/28/21 08/28/21 08/28/21 Range/Units 12:20 12:20 12:20 WBC 5.1 (4.5-11.0) K/uL RBC 4.20 L (4.30-5.90) M/uL Hgb 13.0 (12.0-15.0) g/dL Hct 40.0 (40.0-54.0) % MCV 95 (80-98) fL MCH 31 (27-31) pg MCHC 33 (32-36) % Plt Count 134 L (150-400) K/uL Neut % (Auto) 78.5 H (36-66) % Lymph % (Auto) 8.8 L (24-44) % [place] % (Auto) 12.7 H (2-6) % Eos % (Auto) 0.0 L (2-4) % Baso % (Auto) 0.0 (0-1) % Sodium 140 (140-148) mmol/L Potassium 4.5 (3.6-5.2) mmol/L Chloride 101 (100-108) mmol/L Carbon Dioxide 28 (21-32) mmol/L Anion Gap 10.7 (5.0-14.0) mmol/L BUN 20 H (7-18) mg/dL Creatinine 1.0 (0.8-1.3) mg/dL Est Cr Clr Drug Dosing 54.68 mL/min Estimated GFR (MDRD) > 60 (>60) Glucose 97 (74-106) mg/dL Calcium 8.0 L (8.5-10.1) mg/dL Creatine Kinase 669 H (39-308) U/L SARS-CoV-2 RNA (KATERIN) (NEGATIVE) 08/28/21 Range/Units 12:32 WBC (4.5-11.0) K/uL RBC (4.30-5.90) M/uL Hgb (12.0-15.0) g/dL Hct (40.0-54.0) % MCV (80-98) fL MCH (27-31) pg MCHC (32-36) % Plt Count (150-400) K/uL Neut % (Auto) (36-66) % Lymph % (Auto) (24-44) % [place] % (Auto) (2-6) % Eos % (Auto) (2-4) % Baso % (Auto) (0-1) % Sodium (140-148) mmol/L Potassium (3.6-5.2) mmol/L Chloride (100-108) mmol/L Carbon Dioxide (21-32) mmol/L Anion Gap (5.0-14.0) mmol/L BUN (7-18) mg/dL Creatinine (0.8-1.3) mg/dL Est Cr Clr Drug Dosing mL/min Estimated GFR (MDRD) (>60) Glucose (74-106) mg/dL Calcium (8.5-10.1) mg/dL Creatine Kinase (39-308) U/L SARS-CoV-2 RNA (KATERIN) Positive H (NEGATIVE) Result Diagrams: 08/28/21 12:20 08/28/21 12:20 Sepsis Event Note - Focused Exam Vital Signs: Vital Signs Temp Pulse Resp BP Pulse Ox 08/28/21 11:44 36.6 C 71 17 129/71 96 08/28/21 11:37 36.6 C 71 17 129/71 96 *Q Meaningful Use (ADM) - VTE Risk Assess *Q Each Risk Factor Represents 1 Point: Serious lung disease including pneumonia Total Score 1 Point Risk Factors: 1 Each Risk Factor Represents 2 Points: Malignancy (present or previous) Total Score 2 Point Risk Factors: 2 Each Risk Factor Represents 3 Points: Age 75 Years or Greater Total Score 3 Point Risk Factors: 3 Each Risk Factor Represents 5 Points: None Total Score 5 Point Risk Factors: 0 Venous Thromboembolism Risk Factor Score *Q: 6 - Problem List (1) COVID-19 SNOMED Code(s): 178904218 ICD Code: U07.1 - COVID-19 Status: Acute Current Visit: Yes (2) Weakness SNOMED Code(s): 26298822 ICD Code: R53.1 - WEAKNESS Status: Acute Current Visit: Yes (3) CAD (coronary artery disease) SNOMED Code(s): 57583794 ICD Code: I25.10 - ATHSCL HEART DISEASE OF [place] CORONARY ARTERY W/O ANG PCTRS Status: Chronic Current Visit: Yes Qualifiers: Coronary Disease-Associated Artery/Lesion type: [place] artery [place] vs. transplanted heart: [place] heart Associated angina: without angina Qualified Code(s): I25.10 - Atherosclerotic heart disease of [place] coronary artery without angina pectoris (4) Atrial fib/flutter, transient SNOMED Code(s): 148453236 ICD Code: [id number] - Status: Chronic Current Visit: No Problem List Initiated/Reviewed/Updated: Yes Orders Last 24hrs: Active Orders 24 hr Category Date Time Status Patient Status Manage Transfer [TRANSFER] Routine ADT 08/28/21 14:52 Active Resuscitation Status Routine Resus Stat 08/28/21 14:52 Ordered Assessment/Plan Comment:: ASSESSMENT AND PLAN - COVID-19 infection-manifestations of weakness, nausea, diarrhea, headache, myalgias and anorexia. Evidence for at least mild dehydration. He is so weak he cannot stand up or bear any weight and is not safe for discharge home at this time. He is not currently hypoxic. Symptoms started on 25 August and his positive test was on the . -Symptomatic management of pain, nausea and diarrhea -1 L of IV fluids as discussed below -Physical therapy -Consider additional treatment if he becomes hypoxic Rhabdomyolysis-mild at this time. He is at least mildly dehydrated and has a mildly elevated creatine kinase level. -1 L of IV fluids -Recheck CK in the morning Coronary artery disease-history of [place]. No active symptoms. -Medical management Paroxysmal atrial fibrillation/flutter-chronically anticoagulated. -Continue medical management Maintenance issues - -DVT prophylaxis-rivaroxaban -GI prophylaxis-PPI -Nutrition-regular -Asencio catheter-not indicated CODE STATUS -DNR/DNI Admission justification -this patient will be admitted for inpatient services and is medically appropriate meeting medical necessity for inpatient admission as outlined in my documentation. I reasonably expect the patient will require inpatient services that span a period time over 2 midnights. I reasonably expect this patient to be discharged or transferred within 96 hours after admission to the [facility]. Disposition -I anticipate discharge home after the hospital stay Primary care physician -Dr. Jeferson Apple M.D. - Mortality Measure Prognosis:: Good
[2021-08-28] MEDS ORDERED: Magnesium Hydroxide 400 MG/5 ML Susp 30 ML Cup PO PRN (15:28)
[2021-08-28] MEDS ORDERED: LORazepam 2 MG/ML SDV IVPUSH PRN (15:28)
[2021-08-28] MEDS ORDERED: Sodium Chloride 0.9% 1,000 ML IV SCH (15:28)
[2021-08-28] MEDS ORDERED: Melatonin 3 MG Tab PO PRN (15:28)
[2021-08-28] MEDS ORDERED: Ondansetron 4 MG/2 ML SDV IV PRN (15:28)
[2021-08-28] MEDS: Acetaminophen 325 MG Tab PO PRN ×2 (15:53→19:44)
[2021-08-28] MEDS: Zolpidem 5 MG Tab PO SCH (21:24)
[2021-08-29] MEDS: Acetaminophen/HYDROcodone 325-5 MG Tab PO PRN ×2 (04:52→21:06)
[2021-08-29] MEDS: Verapamil 120 MG Tab.ER PO SCH (08:42)
[2021-08-29] MEDS: Cyanocobalamin (Vitamin B12) 1,000 MCG Tab PO SCH (08:42)
[2021-08-29] MEDS: Pantoprazole 40 MG Tab.CR PO SCH (08:42)
[2021-08-29] MEDS: Multivitamins with Iron/Calcium/Folic Acid/Minerals Tab PO SCH (08:42)
[2021-08-29] MEDS: Rivaroxaban 10 MG Tab PO SCH (08:43)
[2021-08-29] MEDS: Metoprolol Succinate 25 MG Tab.ER PO SCH (08:43)
[2021-08-29] MEDS ORDERED: Sodium Chloride 0.9% 1,000 ML IV SCH (09:45)
[2021-08-29] MEDS: Ondansetron 4 MG Tab.DIS PO PRN (10:27)
--- NOTE | 2021-08-29 11:31 | PCM.PN ---
- General Info Date of Service: 08/29/21 Subjective Update: No acute events overnight. No fevers. No hypoxia. He continues to endorse headache, nausea, myalgias and back pain. Very mild diarrhea but nothing impressive. Not much of an appetite. Still quite weak but able to get around a little bit with assistance today. CK level is higher today at more than 2000. Functional Status: Reports: Pain Controlled - Review of Systems General: Reports: Weakness, Fatigue. Denies: Fever Gastrointestinal: Reports: Nausea Musculoskeletal: Reports: Back Pain Neurological: Reports: Headache - Patient Data Vitals - Most Recent: Last Vital Signs Temp 36.4 C 08/29/21 10:29 Pulse 78 08/29/21 10:29 Resp 16 08/29/21 10:29 BP 142/69 H 08/29/21 10:29 Pulse Ox 97 08/29/21 10:29 Weight - Most Recent: 68.946 kg I&O - Last 24 Hours: Intake & Output 08/28/21 08/29/21 08/29/21 22:59 06:59 14:59 Intake Total 240 Output Total 75 200 Balance 240 -75 -200 Lab Results Last 24 Hours: Laboratory Results - last 24 hr 08/28/21 08/28/21 08/28/21 Range/Units 12:20 12:20 12:20 WBC 5.1 (4.5-11.0) K/uL RBC 4.20 L (4.30-5.90) M/uL Hgb 13.0 (12.0-15.0) g/dL Hct 40.0 (40.0-54.0) % MCV 95 (80-98) fL MCH 31 (27-31) pg MCHC 33 (32-36) % Plt Count 134 L (150-400) K/uL Neut % (Auto) 78.5 H (36-66) % Lymph % (Auto) 8.8 L (24-44) % Weld % (Auto) 12.7 H (2-6) % Eos % (Auto) 0.0 L (2-4) % Baso % (Auto) 0.0 (0-1) % D-Dimer, Quantitative (0.0-500.0) ng/mL Sodium 140 (140-148) mmol/L Potassium 4.5 (3.6-5.2) mmol/L Chloride 101 (100-108) mmol/L Carbon Dioxide 28 (21-32) mmol/L Anion Gap 10.7 (5.0-14.0) mmol/L BUN 20 H (7-18) mg/dL Creatinine 1.0 (0.8-1.3) mg/dL Est Cr Clr Drug Dosing 54.68 mL/min Estimated GFR (MDRD) > 60 (>60) Glucose 97 (74-106) mg/dL Calcium 8.0 L (8.5-10.1) mg/dL Creatine Kinase 669 H (39-308) U/L C-Reactive Protein (0.0-0.3) mg/dL SARS-CoV-2 RNA (KATERIN) (NEGATIVE) 08/28/21 08/29/21 08/29/21 Range/Units 12:32 04:40 04:40 WBC 3.9 L (4.5-11.0) K/uL RBC 4.22 L (4.30-5.90) M/uL Hgb 13.0 (12.0-15.0) g/dL Hct 40.0 (40.0-54.0) % MCV 95 (80-98) fL MCH 31 (27-31) pg MCHC 33 (32-36) % Plt Count 129 L (150-400) K/uL Neut % (Auto) (36-66) % Lymph % (Auto) (24-44) % [place]eld % (Auto) (2-6) % Eos % (Auto) (2-4) % Baso % (Auto) (0-1) % D-Dimer, Quantitative 491.09 (0.0-500.0) ng/mL Sodium (140-148) mmol/L Potassium (3.6-5.2) mmol/L Chloride (100-108) mmol/L Carbon Dioxide (21-32) mmol/L Anion Gap (5.0-14.0) mmol/L BUN (7-18) mg/dL Creatinine (0.8-1.3) mg/dL Est Cr Clr Drug Dosing mL/min Estimated GFR (MDRD) (>60) Glucose (74-106) mg/dL Calcium (8.5-10.1) mg/dL Creatine Kinase (39-308) U/L C-Reactive Protein (0.0-0.3) mg/dL SARS-CoV-2 RNA (KATERIN) Positive H (NEGATIVE) 08/29/21 Range/Units 04:40 WBC (4.5-11.0) K/uL RBC (4.30-5.90) M/uL Hgb (12.0-15.0) g/dL Hct (40.0-54.0) % MCV (80-98) fL MCH (27-31) pg MCHC (32-36) % Plt Count (150-400) K/uL Neut % (Auto) (36-66) % Lymph % (Auto) (24-44) % Weld % (Auto) (2-6) % Eos % (Auto) (2-4) % Baso % (Auto) (0-1) % D-Dimer, Quantitative (0.0-500.0) ng/mL Sodium 141 (140-148) mmol/L Potassium 4.0 (3.6-5.2) mmol/L Chloride 103 (100-108) mmol/L Carbon Dioxide 29 (21-32) mmol/L Anion Gap 9.0 (5.0-14.0) mmol/L BUN 16 (7-18) mg/dL Creatinine 0.9 (0.8-1.3) mg/dL Est Cr Clr Drug Dosing 59.63 mL/min Estimated GFR (MDRD) > 60 (>60) Glucose 85 (74-106) mg/dL Calcium 7.9 L (8.5-10.1) mg/dL Creatine Kinase 2237 H (39-308) U/L C-Reactive Protein 5.41 H (0.0-0.3) mg/dL SARS-CoV-2 RNA (KATERIN) (NEGATIVE) Med Orders - Current: Current Medications Acetaminophen (Acetaminophen 325 Mg Tab) 650 mg PO Q4H PRN PRN Reason: Pain (Mild 1-3)/fever Last Admin: 08/28/21 19:44 Dose: 650 mg Documented by: Hydrocodone Bitart/Acetaminophen (Acetaminophen/Hydrocodone 325-5 Mg Tab) 1 tab PO Q4H PRN PRN Reason: Pain Last Admin: 08/29/21 04:52 Dose: 1 tab Documented by: Cyanocobalamin (Cyanocobalamin (Vitamin B12) 1,000 Mcg Tab) 500 mcg PO DAILY LEANDRO Last Admin: 08/29/21 08:42 Dose: 500 mcg Documented by: Sodium Chloride (Normal Saline) 1,000 mls @ 125 mls/hr IV ASDIRECTED [facility] Stop: 08/29/21 17:46 Lorazepam (Lorazepam 2 Mg/Ml Sdv) 0.5 mg IVPUSH Q4H PRN PRN Reason: Nausea/Vomiting Magnesium Hydroxide (Magnesium Hydroxide 400 Mg/5 Ml Susp 30 Ml Cup) 30 ml PO Q12H PRN PRN Reason: Constipation Melatonin (Melatonin 3 Mg Tab) 9 mg PO BEDTIME PRN PRN Reason: Sleep Metoprolol Succinate (Metoprolol Succinate 25 Mg Tab.Er) 25 mg PO DAILY [facility] Last Admin: 08/29/21 08:43 Dose: 25 mg Documented by: Multivitamins/Minerals (Multivitamins With Iron/Calcium/Folic Acid/Minerals Tab) 1 tab PO DAILY [facility] Last Admin: 08/29/21 08:42 Dose: 1 tab Documented by: Ondansetron HCl (Ondansetron 4 Mg Tab.Dis) 4 mg PO Q6H PRN PRN Reason: Nausea able to take PO Last Admin: 08/29/21 10:27 Dose: 4 mg Documented by: Ondansetron HCl (Ondansetron 4 Mg/2 Ml Sdv) 4 mg IV Q6H PRN PRN Reason: Nausea/Vomiting Pantoprazole Sodium (Pantoprazole 40 Mg Tab.Cr) 40 mg PO ACBREAKFAST [facility] Last Admin: 08/29/21 08:42 Dose: 40 mg Documented by: Rivaroxaban (Rivaroxaban 10 Mg Tab) 20 mg PO DAILY [facility] Last Admin: 08/29/21 08:43 Dose: 20 mg Documented by: Senna/Docusate Sodium (Docusate Sodium/Sennosides 50-8.6 Mg Tab) 1 tab PO BID PRN PRN Reason: Constipation Verapamil HCl (Verapamil 120 Mg Tab.Er) 240 mg PO DAILY [facility] Last Admin: 08/29/21 08:42 Dose: 240 mg Documented by: Zolpidem Tartrate (Zolpidem 5 Mg Tab) 10 mg PO BEDTIME [facility] Last Admin: 08/28/21 21:24 Dose: 10 mg Documented by: Discontinued Medications Sodium Chloride (Normal Saline) 1,000 mls @ 125 mls/hr IV ASDIRECTED [facility] Stop: 08/28/21 23:29 Last Admin: 08/28/21 15:51 Dose: 125 mls/hr Documented by: - Exam Quality Assessment: No: Supplemental Oxygen General: Alert, Oriented, Cooperative, No Acute Distress Lungs: Normal Respiratory Effort GI/Abdominal Exam: Soft, No Distention Extremities: No Pedal Edema. No: Increased Warmth Skin: Warm, Dry, Ecchymosis (right forearm ) Psy/Mental Status: Alert, Normal Affect - Patient Data Lab Results Last 24 hrs: Laboratory Results - last 24 hr 08/28/21 08/28/21 08/28/21 Range/Units 12:20 12:20 12:20 WBC 5.1 (4.5-11.0) K/uL RBC 4.20 L (4.30-5.90) M/uL Hgb 13.0 (12.0-15.0) g/dL Hct 40.0 (40.0-54.0) % MCV 95 (80-98) fL MCH 31 (27-31) pg MCHC 33 (32-36) % Plt Count 134 L (150-400) K/uL Neut % (Auto) 78.5 H (36-66) % Lymph % (Auto) 8.8 L (24-44) % Weld % (Auto) 12.7 H (2-6) % Eos % (Auto) 0.0 L (2-4) % Baso % (Auto) 0.0 (0-1) % D-Dimer, Quantitative (0.0-500.0) ng/mL Sodium 140 (140-148) mmol/L Potassium 4.5 (3.6-5.2) mmol/L Chloride 101 (100-108) mmol/L Carbon Dioxide 28 (21-32) mmol/L Anion Gap 10.7 (5.0-14.0) mmol/L BUN 20 H (7-18) mg/dL Creatinine 1.0 (0.8-1.3) mg/dL Est Cr Clr Drug Dosing 54.68 mL/min Estimated GFR (MDRD) > 60 (>60) Glucose 97 (74-106) mg/dL Calcium 8.0 L (8.5-10.1) mg/dL Creatine Kinase 669 H (39-308) U/L C-Reactive Protein (0.0-0.3) mg/dL SARS-CoV-2 RNA (KATERIN) (NEGATIVE) 08/28/21 08/29/21 08/29/21 Range/Units 12:32 04:40 04:40 WBC 3.9 L (4.5-11.0) K/uL RBC 4.22 L (4.30-5.90) M/uL Hgb 13.0 (12.0-15.0) g/dL Hct 40.0 (40.0-54.0) % MCV 95 (80-98) fL MCH 31 (27-31) pg MCHC 33 (32-36) % Plt Count 129 L (150-400) K/uL Neut % (Auto) (36-66) % Lymph % (Auto) (24-44) % Weld % (Auto) (2-6) % Eos % (Auto) (2-4) % Baso % (Auto) (0-1) % D-Dimer, Quantitative 491.09 (0.0-500.0) ng/mL Sodium (140-148) mmol/L Potassium (3.6-5.2) mmol/L Chloride (100-108) mmol/L Carbon Dioxide (21-32) mmol/L Anion Gap (5.0-14.0) mmol/L BUN (7-18) mg/dL Creatinine (0.8-1.3) mg/dL Est Cr Clr Drug Dosing mL/min Estimated GFR (MDRD) (>60) Glucose (74-106) mg/dL Calcium (8.5-10.1) mg/dL Creatine Kinase (39-308) U/L C-Reactive Protein (0.0-0.3) mg/dL SARS-CoV-2 RNA (KATERIN) Positive H (NEGATIVE) 08/29/21 Range/Units 04:40 WBC (4.5-11.0) K/uL RBC (4.30-5.90) M/uL Hgb (12.0-15.0) g/dL Hct (40.0-54.0) % MCV (80-98) fL MCH (27-31) pg MCHC (32-36) % Plt Count (150-400) K/uL Neut % (Auto) (36-66) % Lymph % (Auto) (24-44) % Weld % (Auto) (2-6) % Eos % (Auto) (2-4) % Baso % (Auto) (0-1) % D-Dimer, Quantitative (0.0-500.0) ng/mL Sodium 141 (140-148) mmol/L Potassium 4.0 (3.6-5.2) mmol/L Chloride 103 (100-108) mmol/L Carbon Dioxide 29 (21-32) mmol/L Anion Gap 9.0 (5.0-14.0) mmol/L BUN 16 (7-18) mg/dL Creatinine 0.9 (0.8-1.3) mg/dL Est Cr Clr Drug Dosing 59.63 mL/min Estimated GFR (MDRD) > 60 (>60) Glucose 85 (74-106) mg/dL Calcium 7.9 L (8.5-10.1) mg/dL Creatine Kinase 2237 H (39-308) U/L C-Reactive Protein 5.41 H (0.0-0.3) mg/dL SARS-CoV-2 RNA (KATERIN) (NEGATIVE) Result Diagrams: 08/29/21 04:40 08/29/21 04:40 Sepsis Event Note - Evaluation Sepsis Screening Result: No Definite Risk - Focused Exam Vital Signs: Vital Signs Temp Pulse Pulse Resp BP BP Pulse Ox 08/29/21 10:29 36.4 C 78 16 142/69 H 97 08/29/21 08:43 90 144/77 H 08/29/21 08:42 90 144/77 H 08/29/21 07:00 36.9 C 95 16 144/77 H 95 08/29/21 03:00 36.4 C 79 18 146/66 H 98 - Problem List & Annotations (1) COVID-19 SNOMED Code(s): 002453364 Code(s): U07.1 - COVID-19 Status: Acute Current Visit: Yes (2) Weakness SNOMED Code(s): 65073734 Code(s): R53.1 - WEAKNESS Status: Acute Current Visit: Yes (3) CAD (coronary artery disease) SNOMED Code(s): 00549910 Code(s): I25.10 - ATHSCL HEART DISEASE OF [place] CORONARY ARTERY W/O ANG PCTRS Status: Chronic Current Visit: Yes Qualifiers: Coronary Disease-Associated Artery/Lesion type: [place] artery [place] vs. transplanted heart: [place] heart Associated angina: without angina Qualified Code(s): I25.10 - Atherosclerotic heart disease of [place] coronary artery without angina pectoris (4) Atrial fib/flutter, transient SNOMED Code(s): 644677432 Code(s): MRA7102 - Status: Chronic Current Visit: No - Problem List Review Problem List Initiated/Reviewed/Updated: Yes - My Orders Last 24 Hours: My Active Orders 08/28/21 14:52 Resuscitation Status Routine 08/28/21 15:28 Acetaminophen [TylenoL] 650 mg PO Q4H PRN Acetaminophen/HYDROcodone [[place] 325-5 MG] 1 tab PO Q4H PRN Docusate Sodium/Sennosides [Senna Plus] 1 tab PO BID PRN LORazepam [Ativan] 0.5 mg IVPUSH Q4H PRN Magnesium Hydroxide [Milk of Magnesia] 30 ml PO Q12H PRN Melatonin 9 mg PO BEDTIME PRN Ondansetron [Zofran ODT] 4 mg PO Q6H PRN Ondansetron [Zofran] 4 mg IV Q6H PRN 08/28/21 15:28 Patient Status [ADT] Routine Intake and Output [RC] QSHIFT Notify Provider Vital Signs [RC] ASDIRECTED Oxygen Therapy [RC] PRN Up With Assistance [RC] ASDIRECTED VTE/DVT Education [RC] Per Unit Routine Vital Signs [RC] Q4H PT Evaluation and Treatment [CONS] Routine Isolation [COMM] Routine 08/28/21 Dinner Regular Diet [DIET] 08/28/21 21:00 Zolpidem [Ambien] 10 mg PO BEDTIME 08/29/21 07:30 Pantoprazole [ProTONIX] 40 mg PO ACBREAKFAST 08/29/21 09:00 Cyanocobalamin (Vitamin B12) [Vitamin B12] 500 mcg PO DAILY Metoprolol Succinate [Toprol XL] 25 mg PO DAILY Multivitamins w-Iron/Ca/FA/Min [Thera M Plus] 1 tab PO DAILY Rivaroxaban [Xarelto] 20 mg PO DAILY Verapamil [[place] SR] 240 mg PO DAILY 08/29/21 09:45 Sodium Chloride 0.9% [Normal Saline] 1,000 ml IV ASDIRECTED - Plan Plan:: ASSESSMENT AND PLAN - COVID-19 infection-manifestations of weakness, nausea, diarrhea, headache, myalgias and anorexia. Symptoms started on 25 August and his positive test was on the . Still symptomatic but fortunately not hypoxic. No fevers. Weak but a little better today. -Symptomatic management of pain, nausea and diarrhea -1 L of IV fluids again today -Physical therapy -Consider additional treatment if he becomes hypoxic Rhabdomyolysis-mild at this time but CK level did rise from yesterday. -1 L of IV fluids -Recheck CK in the morning Coronary artery disease-history of [place]. No active symptoms. -Medical management Paroxysmal atrial fibrillation/flutter-chronically anticoagulated. -Continue medical management Maintenance issues - -DVT prophylaxis-rivaroxaban -GI prophylaxis-PPI -Nutrition-regular Disposition -I anticipate discharge home after the hospital stay Primary care physician -Dr. Jeferson Apple M.D.
[2021-08-29] MEDS: Acetaminophen 325 MG Tab PO PRN (15:27)
[2021-08-29] MEDS: Zolpidem 5 MG Tab PO SCH (21:16)
[2021-08-30] MEDS: Acetaminophen/HYDROcodone 325-5 MG Tab PO PRN ×3 (07:59→20:01)
[2021-08-30] MEDS: Pantoprazole 40 MG Tab.CR PO SCH (08:00)
[2021-08-30] MEDS: Multivitamins with Iron/Calcium/Folic Acid/Minerals Tab PO SCH (08:00)
[2021-08-30] MEDS: Verapamil 120 MG Tab.ER PO SCH (08:00)
[2021-08-30] MEDS: Cyanocobalamin (Vitamin B12) 1,000 MCG Tab PO SCH (08:00)
[2021-08-30] MEDS: Metoprolol Succinate 25 MG Tab.ER PO SCH (08:01)
[2021-08-30] MEDS: Rivaroxaban 10 MG Tab PO SCH (08:02)
[2021-08-30] MEDS ORDERED: Lactated Ringers 1,000 ML IV SCH (08:15)
[2021-08-30] MEDS: Acetaminophen 325 MG Tab PO PRN (10:41)
--- NOTE | 2021-08-30 14:50 | PCM.PN ---
- General Info Date of Service: 08/30/21 Subjective Update: No acute events overnight. Patient feels weak and tired but otherwise okay. No nausea or vomiting. No diarrhea. He does get weak and a little winded with act ivity but has not been hypoxic. Appetite is a little better today but still pretty minimal. CK level is down to just over thousand. Back pain is better. Requiring some assistance with activities but seems to be slowly coming around. Functional Status: Reports: Tolerating Diet - Review of Systems General: Reports: Weakness. Denies: Fever Gastrointestinal: Denies: Diarrhea Musculoskeletal: Reports: Back Pain - Patient Data Vitals - Most Recent: Last Vital Signs Temp 35.2 C L 08/30/21 14:19 Pulse 71 08/30/21 14:19 Resp 18 08/30/21 14:19 BP 89/57 L 08/30/21 14:19 Pulse Ox 94 L 08/30/21 14:19 Weight - Most Recent: 68.946 kg I&O - Last 24 Hours: Intake & Output 08/29/21 08/30/21 08/30/21 22:59 06:59 14:59 Intake Total 100 Output Total 200 1350 Balance -200 100 -1350 Lab Results Last 24 Hours: Laboratory Results - last 24 hr 08/30/21 Range/Units 04:35 Sodium 140 (140-148) mmol/L Potassium 4.0 (3.6-5.2) mmol/L Chloride 103 (100-108) mmol/L Carbon Dioxide 31 (21-32) mmol/L Anion Gap 6.5 (5.0-14.0) mmol/L BUN 26 H D (7-18) mg/dL Creatinine 1.0 (0.8-1.3) mg/dL Est Cr Clr Drug Dosing 53.62 mL/min Estimated GFR (MDRD) > 60 (>60) Glucose 113 H (74-106) mg/dL Calcium 7.8 L (8.5-10.1) mg/dL Creatine Kinase 1140 H (39-308) U/L Med Orders - Current: Current Medications Acetaminophen (Acetaminophen 325 Mg Tab) 650 mg PO Q4H PRN PRN Reason: Pain (Mild 1-3)/fever Last Admin: 08/30/21 10:41 Dose: 650 mg Documented by: Hydrocodone Bitart/Acetaminophen (Acetaminophen/Hydrocodone 325-5 Mg Tab) 1 tab PO Q4H PRN PRN Reason: Pain Last Admin: 08/30/21 13:36 Dose: 1 tab Documented by: Cyanocobalamin (Cyanocobalamin (Vitamin B12) 1,000 Mcg Tab) 500 mcg PO DAILY [facility] Last Admin: 08/30/21 08:00 Dose: 500 mcg Documented by: Lactated Ringer's (Ringers, Lactated) 1,000 mls @ 100 mls/hr IV ASDIRECTED [facility] Stop: 08/30/21 18:16 Last Admin: 08/30/21 11:40 Dose: 100 mls/hr Documented by: Lorazepam (Lorazepam 2 Mg/Ml Sdv) 0.5 mg IVPUSH Q4H PRN PRN Reason: Nausea/Vomiting Magnesium Hydroxide (Magnesium Hydroxide 400 Mg/5 Ml Susp 30 Ml Cup) 30 ml PO Q12H PRN PRN Reason: Constipation Melatonin (Melatonin 3 Mg Tab) 9 mg PO BEDTIME PRN PRN Reason: Sleep Metoprolol Succinate (Metoprolol Succinate 25 Mg Tab.Er) 25 mg PO DAILY [facility] Last Admin: 08/30/21 08:01 Dose: 25 mg Documented by: Multivitamins/Minerals (Multivitamins With Iron/Calcium/Folic Acid/Minerals Tab) 1 tab PO DAILY [facility] Last Admin: 08/30/21 08:00 Dose: 1 tab Documented by: Ondansetron HCl (Ondansetron 4 Mg Tab.Dis) 4 mg PO Q6H PRN PRN Reason: Nausea able to take PO Last Admin: 08/29/21 10:27 Dose: 4 mg Documented by: Ondansetron HCl (Ondansetron 4 Mg/2 Ml Sdv) 4 mg IV Q6H PRN PRN Reason: Nausea/Vomiting Last Admin: 08/29/21 14:17 Dose: 4 mg Documented by: Pantoprazole Sodium (Pantoprazole 40 Mg Tab.Cr) 40 mg PO ACBREAKFAST [facility] Last Admin: 08/30/21 08:00 Dose: 40 mg Documented by: Rivaroxaban (Rivaroxaban 10 Mg Tab) 20 mg PO DAILY [facility] Last Admin: 08/30/21 08:02 Dose: 20 mg Documented by: Senna/Docusate Sodium (Docusate Sodium/Sennosides 50-8.6 Mg Tab) 1 tab PO BID PRN PRN Reason: Constipation Verapamil HCl (Verapamil 120 Mg Tab.Er) 240 mg PO DAILY [facility] Last Admin: 08/30/21 08:00 Dose: 240 mg Documented by: Zolpidem Tartrate (Zolpidem 5 Mg Tab) 10 mg PO BEDTIME [facility] Last Admin: 08/29/21 21:16 Dose: 10 mg Documented by: Discontinued Medications Sodium Chloride (Normal Saline) 1,000 mls @ 125 mls/hr IV ASDIRECTED [facility] Stop: 08/28/21 23:29 Last Admin: 08/28/21 15:51 Dose: 125 mls/hr Documented by: Sodium Chloride (Normal Saline) 1,000 mls @ 125 mls/hr IV ASDIRECTED [facility] Stop: 08/29/21 17:46 - Exam Quality Assessment: No: Supplemental Oxygen General: Alert, Oriented, Cooperative, No Acute Distress HEENT: No: Mucous Membr. Moist/[place] (dry) Lungs: Normal Respiratory Effort GI/Abdominal Exam: Soft, No Distention Extremities: No Pedal Edema Skin: Warm, Dry Wound/Incisions: Other (2x5 cm skin tear lateral left arm distal to elbow) Psy/Mental Status: Alert, Normal Affect - Patient Data Lab Results Last 24 hrs: Laboratory Results - last 24 hr 08/30/21 Range/Units 04:35 Sodium 140 (140-148) mmol/L Potassium 4.0 (3.6-5.2) mmol/L Chloride 103 (100-108) mmol/L Carbon Dioxide 31 (21-32) mmol/L Anion Gap 6.5 (5.0-14.0) mmol/L BUN 26 H D (7-18) mg/dL Creatinine 1.0 (0.8-1.3) mg/dL Est Cr Clr Drug Dosing 53.62 mL/min Estimated GFR (MDRD) > 60 (>60) Glucose 113 H (74-106) mg/dL Calcium 7.8 L (8.5-10.1) mg/dL Creatine Kinase 1140 H (39-308) U/L Result Diagrams: 08/29/21 04:40 08/30/21 04:35 Sepsis Event Note - Evaluation Sepsis Screening Result: No Definite Risk - Focused Exam Vital Signs: Vital Signs Temp Pulse Pulse Resp BP BP Pulse Ox 08/30/21 14:19 35.2 C L 71 18 89/57 L 94 L 08/30/21 13:03 93 L 08/30/21 10:54 36.0 C L 68 18 84/51 L 94 L 08/30/21 08:01 70 111/68 08/30/21 08:00 70 111/68 08/30/21 07:45 36.1 C 70 18 111/68 93 L - Problem List & Annotations (1) COVID-19 SNOMED Code(s): 206329899 Code(s): U07.1 - COVID-19 Status: Acute Current Visit: Yes (2) Weakness SNOMED Code(s): 36534328 Code(s): R53.1 - WEAKNESS Status: Acute Current Visit: Yes (3) CAD (coronary artery disease) SNOMED Code(s): 96360976 Code(s): I25.10 - ATHSCL HEART DISEASE OF [place] CORONARY ARTERY W/O ANG PCTRS Status: Chronic Current Visit: Yes Qualifiers: Coronary Disease-Associated Artery/Lesion type: [place] artery [place] vs. transplanted heart: [place] heart Associated angina: without angina Qualified Code(s): I25.10 - Atherosclerotic heart disease of [place] coronary artery without angina pectoris (4) Atrial fib/flutter, transient SNOMED Code(s): 493120352 Code(s): MXD4480 - Status: Chronic Current Visit: No - Problem List Review Problem List Initiated/Reviewed/Updated: Yes - My Orders Last 24 Hours: My Active Orders 08/30/21 08:13 Resuscitation Status Routine 08/30/21 08:15 Lactated Ringers [Ringers, Lactated] 1,000 ml IV ASDIRECTED - Plan Plan:: ASSESSMENT AND PLAN - COVID-19 infection-manifestations of weakness, nausea, diarrhea, headache, myalgias and anorexia. Symptoms started on 25 August and his positive test was on the . Symptoms seem to be slowly dissipating but he remains quite weak and is continuing to require assistance for activities. -Symptomatic management of pain, nausea and diarrhea -1 L of IV fluids again today -Physical therapy -Consider additional treatment if he becomes hypoxic -Patient would like to try to go home if he can gain some more strength over the next couple of days but would consider subacute rehab if he cannot make any gains Rhabdomyolysis-CK level improved from yesterday but still greater than 1000. -1 L of IV fluids -Recheck CK in the morning Coronary artery disease-history of [place]. No active symptoms. -Medical management Paroxysmal atrial fibrillation/flutter-chronically anticoagulated. -Continue medical management Maintenance issues - -DVT prophylaxis-rivaroxaban -GI prophylaxis-PPI -Nutrition-regular Disposition -I anticipate discharge home after the hospital stay Primary care physician -Dr. Jeferson Apple M.D.
[2021-08-30] MEDS: Zolpidem 5 MG Tab PO SCH (20:05)
[2021-08-31] MEDS: Acetaminophen/HYDROcodone 325-5 MG Tab PO PRN ×5 (02:16→22:02)
[2021-08-31] MEDS: Ondansetron 4 MG Tab.DIS PO PRN (08:49)
[2021-08-31] MEDS: Cyanocobalamin (Vitamin B12) 1,000 MCG Tab PO SCH (08:50)
[2021-08-31] MEDS: Pantoprazole 40 MG Tab.CR PO SCH (08:51)
[2021-08-31] MEDS: Rivaroxaban 10 MG Tab PO SCH (08:51)
[2021-08-31] MEDS: Multivitamins with Iron/Calcium/Folic Acid/Minerals Tab PO SCH (08:51)
[2021-08-31] MEDS: Metoprolol Succinate 25 MG Tab.ER PO SCH (08:52)
[2021-08-31] MEDS: Verapamil 120 MG Tab.ER PO SCH (08:52)
[2021-08-31] MEDS: Acetaminophen 325 MG Tab PO PRN (11:41)
--- NOTE | 2021-08-31 14:25 | PCM.PN ---
- General Info Date of Service: 08/31/21 Subjective Update: There were no acute events overnight. Patient continues to feel crummy. He reports headache, some muscle aches, fatigue and no appetite. No significant nausea or diarrhea. He does not feel short of breath but does run out of energy quickly with any activity. No fevers. Vital signs have been stable though blood pressures have been on the low side of normal. Functional Status: Reports: Pain Controlled, Tolerating Diet - Review of Systems General: Reports: Weakness. Denies: Fever Gastrointestinal: Denies: Diarrhea, Nausea - Patient Data Vitals - Most Recent: Last Vital Signs Temp 36.8 C 08/31/21 13:10 Pulse 94 08/31/21 13:10 Resp 18 08/31/21 13:10 BP 100/58 L 08/31/21 13:10 Pulse Ox 93 L 08/31/21 13:10 Weight - Most Recent: 68.946 kg I&O - Last 24 Hours: Intake & Output 08/30/21 08/31/21 08/31/21 22:59 06:59 14:59 Intake Total 380 Balance 380 Med Orders - Current: Current Medications Acetaminophen (Acetaminophen 325 Mg Tab) 650 mg PO Q4H PRN PRN Reason: Pain (Mild 1-3)/fever Last Admin: 08/31/21 11:41 Dose: 650 mg Documented by: Hydrocodone Bitart/Acetaminophen (Acetaminophen/Hydrocodone 325-5 Mg Tab) 2 tab PO Q4H PRN PRN Reason: Pain Last Admin: 08/31/21 13:08 Dose: 2 tab Documented by: Cyanocobalamin (Cyanocobalamin (Vitamin B12) 1,000 Mcg Tab) 500 mcg PO DAILY [facility] Last Admin: 08/31/21 08:50 Dose: 500 mcg Documented by: Lorazepam (Lorazepam 2 Mg/Ml Sdv) 0.5 mg IVPUSH Q4H PRN PRN Reason: Nausea/Vomiting Magnesium Hydroxide (Magnesium Hydroxide 400 Mg/5 Ml Susp 30 Ml Cup) 30 ml PO Q12H PRN PRN Reason: Constipation Melatonin (Melatonin 3 Mg Tab) 9 mg PO BEDTIME PRN PRN Reason: Sleep Last Admin: 08/31/21 02:35 Dose: 9 mg Documented by: Metoprolol Succinate (Metoprolol Succinate 25 Mg Tab.Er) 25 mg PO DAILY [facility] Last Admin: 08/31/21 08:52 Dose: Not Given Documented by: Multivitamins/Minerals (Multivitamins With Iron/Calcium/Folic Acid/Minerals Tab) 1 tab PO DAILY [facility] Last Admin: 08/31/21 08:51 Dose: 1 tab Documented by: Ondansetron HCl (Ondansetron 4 Mg Tab.Dis) 4 mg PO Q6H PRN PRN Reason: Nausea able to take PO Last Admin: 08/31/21 08:49 Dose: 4 mg Documented by: Ondansetron HCl (Ondansetron 4 Mg/2 Ml Sdv) 4 mg IV Q6H PRN PRN Reason: Nausea/Vomiting Last Admin: 08/29/21 14:17 Dose: 4 mg Documented by: Pantoprazole Sodium (Pantoprazole 40 Mg Tab.Cr) 40 mg PO ACBREAKFAST [facility] Last Admin: 08/31/21 08:51 Dose: 40 mg Documented by: Rivaroxaban (Rivaroxaban 10 Mg Tab) 20 mg PO DAILY [facility] Last Admin: 08/31/21 08:51 Dose: 20 mg Documented by: Senna/Docusate Sodium (Docusate Sodium/Sennosides 50-8.6 Mg Tab) 1 tab PO BID PRN PRN Reason: Constipation Verapamil HCl (Verapamil 120 Mg Tab.Er) 240 mg PO DAILY [facility] Last Admin: 08/31/21 08:52 Dose: Not Given Documented by: Zolpidem Tartrate (Zolpidem 5 Mg Tab) 10 mg PO BEDTIME [facility] Last Admin: 08/30/21 20:05 Dose: 10 mg Documented by: Discontinued Medications Hydrocodone Bitart/Acetaminophen (Acetaminophen/Hydrocodone 325-5 Mg Tab) 1 tab PO Q4H PRN PRN Reason: Pain Last Admin: 08/31/21 08:49 Dose: 1 tab Documented by: Sodium Chloride (Normal Saline) 1,000 mls @ 125 mls/hr IV ASDIRECTED [facility] Stop: 08/28/21 23:29 Last Admin: 08/28/21 15:51 Dose: 125 mls/hr Documented by: Sodium Chloride (Normal Saline) 1,000 mls @ 125 mls/hr IV ASDIRECTED [facility] Stop: 08/29/21 17:46 Lactated Ringer's (Ringers, Lactated) 1,000 mls @ 100 mls/hr IV ASDIRECTED [facility] Stop: 08/30/21 18:16 Last Admin: 08/30/21 11:40 Dose: 100 mls/hr Documented by: - Exam Quality Assessment: No: Supplemental Oxygen General: Alert, Oriented, Cooperative, No Acute Distress Lungs: Normal Respiratory Effort GI/Abdominal Exam: Soft, No Distention Extremities: No Pedal Edema Psy/Mental Status: Alert, Normal Affect - Patient Data Result Diagrams: 08/29/21 04:40 08/30/21 04:35 Sepsis Event Note - Evaluation Sepsis Screening Result: No Definite Risk - Focused Exam Vital Signs: Vital Signs Temp Pulse Resp BP Pulse Ox 08/31/21 13:10 36.8 C 94 18 100/58 L 93 L 08/31/21 09:00 36.5 C 92 18 104/62 94 L 08/31/21 07:00 36.4 C 87 18 122/66 92 L - Problem List & Annotations (1) COVID-19 SNOMED Code(s): 472748685 Code(s): U07.1 - COVID-19 Status: Acute Current Visit: Yes (2) Weakness SNOMED Code(s): 94203913 Code(s): R53.1 - WEAKNESS Status: Acute Current Visit: Yes (3) CAD (coronary artery disease) SNOMED Code(s): 12746493 Code(s): I25.10 - ATHSCL HEART DISEASE OF [place] CORONARY ARTERY W/O ANG PCTRS Status: Chronic Current Visit: Yes Qualifiers: Coronary Disease-Associated Artery/Lesion type: [place] artery [place] vs. transplanted heart: [place] heart Associated angina: without angina Qualified Code(s): I25.10 - Atherosclerotic heart disease of [place] coronary artery without angina pectoris (4) Atrial fib/flutter, transient SNOMED Code(s): 368793000 Code(s): IHU8585 - Status: Chronic Current Visit: No - Problem List Review Problem List Initiated/Reviewed/Updated: Yes - My Orders Last 24 Hours: My Active Orders 08/31/21 12:38 Acetaminophen/HYDROcodone [[place] 325-5 MG] 2 tab PO Q4H PRN 09/01/21 05:00 BASIC METABOLIC PANEL,BMP [CHEM] Timed CREATINE KINASE,CK [CHEM] Timed - Plan Plan:: ASSESSMENT AND PLAN - COVID-19 infection-manifestations of weakness, nausea, diarrhea, headache, myalgias and anorexia. Symptoms started on 25 August and his positive test was on the . Does seem to be slowly improving but still does not feel good. No appetite or strength. -Symptomatic management of pain, nausea and diarrhea -Physical therapy -Consider additional treatment if he becomes hypoxic -Patient would like to try to go home if he can gain some more strength over the next couple of days but would consider subacute rehab if he cannot make any gains Rhabdomyolysis-CK level was down to around 1000 yesterday -Recheck CK in the morning Coronary artery disease-history of [place]. No active symptoms. -Medical management Paroxysmal atrial fibrillation/flutter-chronically anticoagulated. -Continue medical management Maintenance issues - -DVT prophylaxis-rivaroxaban -GI prophylaxis-PPI -Nutrition-regular Disposition -I anticipate discharge home after the hospital stay Primary care physician -Dr. Jeferson Apple M.D.
[2021-08-31] MEDS: Zolpidem 5 MG Tab PO SCH (22:02)
[2021-09-01] MEDS: Multivitamins with Iron/Calcium/Folic Acid/Minerals Tab PO SCH (07:59)
[2021-09-01] MEDS: Pantoprazole 40 MG Tab.CR PO SCH (07:59)
[2021-09-01] MEDS: Cyanocobalamin (Vitamin B12) 1,000 MCG Tab PO SCH (07:59)
[2021-09-01] MEDS: Rivaroxaban 10 MG Tab PO SCH (07:59)
[2021-09-01] MEDS: Verapamil 120 MG Tab.ER PO SCH (08:01)
[2021-09-01] MEDS: Acetaminophen/HYDROcodone 325-5 MG Tab PO PRN ×2 (08:49→17:16)
[2021-09-01] MEDS ORDERED: Ketorolac 10 MG Tab PO ONE (12:00)
[2021-09-01] MEDS ORDERED: Gabapentin 100 MG Cap PO ONE (12:00)
[2021-09-01] MEDS ORDERED: Ketorolac 30 MG/ML SDV IVPUSH ONE (12:00)
--- NOTE | 2021-09-01 14:38 | PCM.PN ---
- General Info Date of Service: 09/01/21 Subjective Update: No acute events overnight. Patient reports increased pain in his left foot. He has some pain in the left buttocks and this feels similar to his chronic radicul ar pain though quite a bit worse. He is coughing up some sputum but has not been hypoxic. He does not feel short of breath. No significant diarrhea. Appetite not great but better than a couple of days ago. Still feels very weak and fatigued. Does not feel like he is ready to go home yet. - Patient Data Vitals - Most Recent: Last Vital Signs Temp 35.9 C L 09/01/21 13:58 Pulse 64 09/01/21 13:58 Resp 18 09/01/21 13:58 BP 117/63 09/01/21 13:58 Pulse Ox 94 L 09/01/21 13:58 Weight - Most Recent: 68.946 kg I&O - Last 24 Hours: Intake & Output 08/31/21 09/01/21 09/01/21 22:59 06:59 14:59 Intake Total 240 240 380 Output Total 250 Balance 240 -10 380 Lab Results Last 24 Hours: Laboratory Results - last 24 hr 09/01/21 Range/Units 05:30 Sodium 140 (140-148) mmol/L Potassium 4.1 (3.6-5.2) mmol/L Chloride 103 (100-108) mmol/L Carbon Dioxide 33 H (21-32) mmol/L Anion Gap 8.1 (5.0-14.0) mmol/L BUN 27 H (7-18) mg/dL Creatinine 1.0 (0.8-1.3) mg/dL Est Cr Clr Drug Dosing 53.62 mL/min Estimated GFR (MDRD) > 60 (>60) Glucose 84 (74-106) mg/dL Calcium 7.4 L (8.5-10.1) mg/dL Creatine Kinase 253 (39-308) U/L Med Orders - Current: Current Medications Acetaminophen (Acetaminophen 325 Mg Tab) 650 mg PO Q4H PRN PRN Reason: Pain (Mild 1-3)/fever Last Admin: 08/31/21 11:41 Dose: 650 mg Documented by: Hydrocodone Bitart/Acetaminophen (Acetaminophen/Hydrocodone 325-5 Mg Tab) 2 tab PO Q4H PRN PRN Reason: Pain Last Admin: 09/01/21 08:49 Dose: 2 tab Documented by: Cyanocobalamin (Cyanocobalamin (Vitamin B12) 1,000 Mcg Tab) 500 mcg PO DAILY [facility] Last Admin: 09/01/21 07:59 Dose: 500 mcg Documented by: Lorazepam (Lorazepam 2 Mg/Ml Sdv) 0.5 mg IVPUSH Q4H PRN PRN Reason: Nausea/Vomiting Magnesium Hydroxide (Magnesium Hydroxide 400 Mg/5 Ml Susp 30 Ml Cup) 30 ml PO Q12H PRN PRN Reason: Constipation Melatonin (Melatonin 3 Mg Tab) 9 mg PO BEDTIME PRN PRN Reason: Sleep Last Admin: 08/31/21 02:35 Dose: 9 mg Documented by: Metoprolol Succinate (Metoprolol Succinate 25 Mg Tab.Er) 25 mg PO DAILY [facility] Last Admin: 08/31/21 08:52 Dose: Not Given Documented by: Multivitamins/Minerals (Multivitamins With Iron/Calcium/Folic Acid/Minerals Tab) 1 tab PO DAILY [facility] Last Admin: 09/01/21 07:59 Dose: 1 tab Documented by: Ondansetron HCl (Ondansetron 4 Mg Tab.Dis) 4 mg PO Q6H PRN PRN Reason: Nausea able to take PO Last Admin: 08/31/21 08:49 Dose: 4 mg Documented by: Ondansetron HCl (Ondansetron 4 Mg/2 Ml Sdv) 4 mg IV Q6H PRN PRN Reason: Nausea/Vomiting Last Admin: 08/29/21 14:17 Dose: 4 mg Documented by: Pantoprazole Sodium (Pantoprazole 40 Mg Tab.Cr) 40 mg PO ACBREAKFAST [facility] Last Admin: 09/01/21 07:59 Dose: 40 mg Documented by: Rivaroxaban (Rivaroxaban 10 Mg Tab) 20 mg PO DAILY [facility] Last Admin: 09/01/21 07:59 Dose: 20 mg Documented by: Senna/Docusate Sodium (Docusate Sodium/Sennosides 50-8.6 Mg Tab) 1 tab PO BID PRN PRN Reason: Constipation Verapamil HCl (Verapamil 120 Mg Tab.Er) 240 mg PO DAILY [facility] Last Admin: 09/01/21 08:01 Dose: Not Given Documented by: Zolpidem Tartrate (Zolpidem 5 Mg Tab) 10 mg PO BEDTIME [facility] Last Admin: 08/31/21 22:02 Dose: 10 mg Documented by: Discontinued Medications Hydrocodone Bitart/Acetaminophen (Acetaminophen/Hydrocodone 325-5 Mg Tab) 1 tab PO Q4H PRN PRN Reason: Pain Last Admin: 08/31/21 08:49 Dose: 1 tab Documented by: Gabapentin (Gabapentin 100 Mg Cap) 200 mg PO ONETIME ONE Stop: 09/01/21 12:01 Last Admin: 09/01/21 11:34 Dose: 200 mg Documented by: Sodium Chloride (Normal Saline) 1,000 mls @ 125 mls/hr IV ASDIRECTED [facility] Stop: 08/28/21 23:29 Last Admin: 08/28/21 15:51 Dose: 125 mls/hr Documented by: Sodium Chloride (Normal Saline) 1,000 mls @ 125 mls/hr IV ASDIRECTED [facility] Stop: 08/29/21 17:46 Lactated Ringer's (Ringers, Lactated) 1,000 mls @ 100 mls/hr IV ASDIRECTED [facility] Stop: 08/30/21 18:16 Last Admin: 08/30/21 11:40 Dose: 100 mls/hr Documented by: Ketorolac Tromethamine (Ketorolac 30 Mg/Ml Sdv) 30 mg IVPUSH ONETIME ONE Stop: 09/01/21 12:01 Ketorolac Tromethamine (Ketorolac 10 Mg Tab) 10 mg PO ONETIME ONE Stop: 09/01/21 12:01 Last Admin: 09/01/21 11:34 Dose: 10 mg Documented by: - Exam Quality Assessment: No: Supplemental Oxygen General: Alert, Oriented, Cooperative, No Acute Distress Lungs: Normal Respiratory Effort. No: Wheezing GI/Abdominal Exam: Soft, No Distention Extremities: No Pedal Edema, Other (No abnormalities of the left foot visualized or palpated. Foot is not tender to palpation.). No: Increased Warmth Psy/Mental Status: Alert, Normal Affect - Patient Data Lab Results Last 24 hrs: Laboratory Results - last 24 hr 09/01/21 Range/Units 05:30 Sodium 140 (140-148) mmol/L Potassium 4.1 (3.6-5.2) mmol/L Chloride 103 (100-108) mmol/L Carbon Dioxide 33 H (21-32) mmol/L Anion Gap 8.1 (5.0-14.0) mmol/L BUN 27 H (7-18) mg/dL Creatinine 1.0 (0.8-1.3) mg/dL Est Cr Clr Drug Dosing 53.62 mL/min Estimated GFR (MDRD) > 60 (>60) Glucose 84 (74-106) mg/dL Calcium 7.4 L (8.5-10.1) mg/dL Creatine Kinase 253 (39-308) U/L Result Diagrams: 08/29/21 04:40 09/01/21 05:30 Sepsis Event Note - Evaluation Sepsis Screening Result: No Definite Risk - Focused Exam Vital Signs: Vital Signs Temp Pulse Resp BP Pulse Ox 09/01/21 13:58 35.9 C L 64 18 117/63 94 L 09/01/21 10:00 36.1 C 77 18 122/67 94 L 09/01/21 07:00 35.9 C L 51 L 17 113/69 93 L - Problem List & Annotations (1) COVID-19 SNOMED Code(s): 991680496 Code(s): U07.1 - COVID-19 Status: Acute Current Visit: Yes (2) Weakness SNOMED Code(s): 30429849 Code(s): R53.1 - WEAKNESS Status: Acute Current Visit: Yes (3) CAD (coronary artery disease) SNOMED Code(s): 83396122 Code(s): I25.10 - ATHSCL HEART DISEASE OF [place] CORONARY ARTERY W/O ANG PCTRS Status: Chronic Current Visit: Yes Qualifiers: Coronary Disease-Associated Artery/Lesion type: [place] artery [place] vs. transplanted heart: [place] heart Associated angina: without angina Qualified Code(s): I25.10 - Atherosclerotic heart disease of [place] coronary artery without angina pectoris (4) Atrial fib/flutter, transient SNOMED Code(s): 389542994 Code(s): ZUP9323 - Status: Chronic Current Visit: No - Problem List Review Problem List Initiated/Reviewed/Updated: Yes - Plan Plan:: ASSESSMENT AND PLAN - COVID-19 infection-manifestations of weakness, nausea, diarrhea, headache, myalgias and anorexia. Symptoms started on 25 August and his positive test was on the . Still quite weak and poor intake but otherwise doing okay. -Symptomatic management of pain, nausea and diarrhea -Physical therapy -Consider additional treatment if he becomes hypoxic -Patient would like to try to go home if he can gain some more strength over the next couple of days but would consider subacute rehab if he cannot make any gains Chronic back pain with radiculopathy-increased pain in the left buttocks and foot. -Continue hydrocodone -Trial of gabapentin -One-time dose of Toradol Rhabdomyolysis-CK level is now normal. -Recheck CK in the morning Coronary artery disease-history of [place]. No active symptoms. -Medical management Paroxysmal atrial fibrillation/flutter-chronically anticoagulated. -Continue medical management Maintenance issues - -DVT prophylaxis-rivaroxaban -GI prophylaxis-PPI -Nutrition-regular Disposition -I anticipate discharge home after the hospital stay Primary care physician -Dr. Jeferson Apple M.D.
[2021-09-01] MEDS: Zolpidem 5 MG Tab PO SCH (21:22)
[2021-09-02] MEDS: Pantoprazole 40 MG Tab.CR PO SCH (08:30)
[2021-09-02] MEDS: Multivitamins with Iron/Calcium/Folic Acid/Minerals Tab PO SCH (08:35)
[2021-09-02] MEDS: Rivaroxaban 10 MG Tab PO SCH (08:35)
[2021-09-02] MEDS: Cyanocobalamin (Vitamin B12) 1,000 MCG Tab PO SCH (08:35)
[2021-09-02] MEDS: Verapamil 120 MG Tab.ER PO SCH (08:37)
[2021-09-02] MEDS: Acetaminophen/HYDROcodone 325-5 MG Tab PO PRN ×3 (08:41→20:30)
--- NOTE | 2021-09-02 16:39 | PCM.PN ---
- General Info Date of Service: 09/02/21 Subjective Update: Mr. Valdez has experienced modest improvement over the last 24 hours. Energy level seems to be coming back and he has been able to walk very short distances. Appetite also seems to be improving with improved oral intake this morning. Functional Status: Reports: Ambulating, Urinating - Review of Systems General: Reports: Weakness, Fatigue. Denies: Fever, Chills Pulmonary: Reports: No Symptoms Cardiovascular: Reports: No Symptoms Gastrointestinal: Reports: No Symptoms Genitourinary: Reports: No Symptoms - Patient Data Vitals - Most Recent: Last Vital Signs Temp 97.8 F 09/02/21 15:57 Pulse 63 09/02/21 15:57 Resp 16 09/02/21 15:57 BP 130/75 09/02/21 15:57 Pulse Ox 96 09/02/21 15:57 Weight - Most Recent: 152 lb I&O - Last 24 Hours: Intake & Output 09/02/21 09/02/21 09/02/21 06:59 14:59 22:59 Intake Total 360 Output Total 450 200 Balance -90 -200 Med Orders - Current: Current Medications Acetaminophen (Acetaminophen 325 Mg Tab) 650 mg PO Q4H PRN PRN Reason: Pain (Mild 1-3)/fever Last Admin: 08/31/21 11:41 Dose: 650 mg Documented by: Hydrocodone Bitart/Acetaminophen (Acetaminophen/Hydrocodone 325-5 Mg Tab) 2 tab PO Q4H PRN PRN Reason: Pain Last Admin: 09/02/21 13:44 Dose: 2 tab Documented by: Cyanocobalamin (Cyanocobalamin (Vitamin B12) 1,000 Mcg Tab) 500 mcg PO DAILY [facility] Last Admin: 09/02/21 08:35 Dose: 500 mcg Documented by: Gabapentin (Gabapentin 100 Mg Cap) 100 mg PO TID [facility] Lorazepam (Lorazepam 2 Mg/Ml Sdv) 0.5 mg IVPUSH Q4H PRN PRN Reason: Nausea/Vomiting Magnesium Hydroxide (Magnesium Hydroxide 400 Mg/5 Ml Susp 30 Ml Cup) 30 ml PO Q12H PRN PRN Reason: Constipation Melatonin (Melatonin 3 Mg Tab) 9 mg PO BEDTIME PRN PRN Reason: Sleep Last Admin: 08/31/21 02:35 Dose: 9 mg Documented by: Metoprolol Succinate (Metoprolol Succinate 25 Mg Tab.Er) 25 mg PO DAILY [facility] Last Admin: 08/31/21 08:52 Dose: Not Given Documented by: Multivitamins/Minerals (Multivitamins With Iron/Calcium/Folic Acid/Minerals Tab) 1 tab PO DAILY [facility] Last Admin: 09/02/21 08:35 Dose: 1 tab Documented by: Ondansetron HCl (Ondansetron 4 Mg Tab.Dis) 4 mg PO Q6H PRN PRN Reason: Nausea able to take PO Last Admin: 08/31/21 08:49 Dose: 4 mg Documented by: Ondansetron HCl (Ondansetron 4 Mg/2 Ml Sdv) 4 mg IV Q6H PRN PRN Reason: Nausea/Vomiting Last Admin: 08/29/21 14:17 Dose: 4 mg Documented by: Pantoprazole Sodium (Pantoprazole 40 Mg Tab.Cr) 40 mg PO ACBREAKFAST [facility] Last Admin: 09/02/21 08:30 Dose: 40 mg Documented by: Rivaroxaban (Rivaroxaban 10 Mg Tab) 20 mg PO DAILY [facility] Last Admin: 09/02/21 08:35 Dose: 20 mg Documented by: Senna/Docusate Sodium (Docusate Sodium/Sennosides 50-8.6 Mg Tab) 1 tab PO BID PRN PRN Reason: Constipation Verapamil HCl (Verapamil 120 Mg Tab.Er) 240 mg PO DAILY [facility] Last Admin: 09/02/21 08:37 Dose: 240 mg Documented by: Zolpidem Tartrate (Zolpidem 5 Mg Tab) 10 mg PO BEDTIME [facility] Last Admin: 09/01/21 21:22 Dose: 10 mg Documented by: Discontinued Medications Hydrocodone Bitart/Acetaminophen (Acetaminophen/Hydrocodone 325-5 Mg Tab) 1 tab PO Q4H PRN PRN Reason: Pain Last Admin: 08/31/21 08:49 Dose: 1 tab Documented by: Gabapentin (Gabapentin 100 Mg Cap) 200 mg PO ONETIME ONE Stop: 09/01/21 12:01 Last Admin: 09/01/21 11:34 Dose: 200 mg Documented by: Gabapentin (Gabapentin 100 Mg Cap) 100 mg PO TID [facility] Sodium Chloride (Normal Saline) 1,000 mls @ 125 mls/hr IV ASDIRECTED [facility] Stop: 08/28/21 23:29 Last Admin: 08/28/21 15:51 Dose: 125 mls/hr Documented by: Sodium Chloride (Normal Saline) 1,000 mls @ 125 mls/hr IV ASDIRECTED [facility] Stop: 08/29/21 17:46 Lactated Ringer's (Ringers, Lactated) 1,000 mls @ 100 mls/hr IV ASDIRECTED [facility] Stop: 08/30/21 18:16 Last Admin: 08/30/21 11:40 Dose: 100 mls/hr Documented by: Ketorolac Tromethamine (Ketorolac 30 Mg/Ml Sdv) 30 mg IVPUSH ONETIME ONE Stop: 09/01/21 12:01 Ketorolac Tromethamine (Ketorolac 10 Mg Tab) 10 mg PO ONETIME ONE Stop: 09/01/21 12:01 Last Admin: 09/01/21 11:34 Dose: 10 mg Documented by: - Exam Quality Assessment: DVT Prophylaxis General: Alert, Oriented, Cooperative, Mild Distress Lungs: Clear to Auscultation, Normal Respiratory Effort Cardiovascular: Regular Rate, Regular Rhythm, No Murmurs GI/Abdominal Exam: Soft, Non-Tender, No Organomegaly, No Distention Extremities: Non-Tender, No Pedal Edema - Patient Data Result Diagrams: 08/29/21 04:40 09/01/21 05:30 Sepsis Event Note - Evaluation Sepsis Screening Result: No Definite Risk - Focused Exam Vital Signs: Vital Signs Temp Pulse Pulse Resp BP BP BP 09/02/21 15:57 97.8 F 63 16 130/75 09/02/21 15:00 94.4 F L 73 16 134/77 09/02/21 10:43 97.5 F 87 16 123/78 09/02/21 08:37 64 144/76 H 09/02/21 07:00 97.1 F 64 16 135/62 Pulse Ox 09/02/21 15:57 96 09/02/21 15:00 94 L 09/02/21 10:43 97 09/02/21 08:37 09/02/21 07:00 94 L - Problem List Review Problem List Initiated/Reviewed/Updated: Yes - My Orders Last 24 Hours: My Active Orders 09/02/21 16:36 Gabapentin [Neurontin] 100 mg PO TID - Plan Plan:: ASSESSMENT AND PLAN COVID-19 infection-manifestations of weakness, nausea, diarrhea, headache, myalgias and anorexia. Symptoms started on 25 August and his positive test was on the . Modest improvement in symptoms over the last 24 hours -Symptomatic management of pain, nausea and diarrhea -Physical therapy -Consider additional treatment if he becomes hypoxic -Patient would like to try to go home if he can gain some more strength over the next couple of days but would consider subacute rehab if he cannot make any gains Chronic back pain with radiculopathy-increased pain in the left buttocks and foot. -Continue hydrocodone -Trial of gabapentin 100 mg 3 times daily Rhabdomyolysis-CK level is now normal. -Recheck CK in the morning Coronary artery disease-history of [place]. No active symptoms. -Medical management Paroxysmal atrial fibrillation/flutter-chronically anticoagulated. -Continue medical management Maintenance issues - -DVT prophylaxis-rivaroxaban -GI prophylaxis-PPI -Nutrition-regular Disposition -I anticipate discharge home after the hospital stay Primary care physician -Dr. Jeferson Simpson
[2021-09-02] MEDS: Gabapentin 100 MG Cap PO SCH ×2 (17:36→20:30)
[2021-09-02] MEDS: Zolpidem 5 MG Tab PO SCH (20:30)
[2021-09-02] MEDS ORDERED: Gabapentin 100 MG Cap PO SCH (21:00)
[2021-09-03] MEDS: Ondansetron 4 MG Tab.DIS PO PRN (08:29)
[2021-09-03] MEDS: Gabapentin 100 MG Cap PO SCH ×3 (08:30→20:11)
[2021-09-03] MEDS: Multivitamins with Iron/Calcium/Folic Acid/Minerals Tab PO SCH (08:31)
[2021-09-03] MEDS: Pantoprazole 40 MG Tab.CR PO SCH (08:31)
[2021-09-03] MEDS: Cyanocobalamin (Vitamin B12) 1,000 MCG Tab PO SCH (08:31)
[2021-09-03] MEDS: Rivaroxaban 10 MG Tab PO SCH (08:32)
[2021-09-03] MEDS: Verapamil 120 MG Tab.ER PO SCH (08:38)
[2021-09-03] MEDS: Metoprolol Succinate 25 MG Tab.ER PO SCH (08:39)
[2021-09-03] MEDS ORDERED: Polyethylene Glycol 3350 Powder 17 GM Packet PO PRN (13:20)
--- NOTE | 2021-09-03 14:36 | PCM.PN ---
- General Info Date of Service: 09/03/21 Subjective Update: Mr. Valdez has not felt as well today as he did yesterday. His cough is more productive and he does experience some chest wall pain with coughing. He has been able to sleep and does feel somewhat more rested. Appetite overall remains fairly poor. Functional Status: Reports: Urinating. Denies: Tolerating Diet - Review of Systems General: Reports: Weakness, Fatigue. Denies: Fever, Chills Pulmonary: Reports: Shortness of Breath, Cough, Sputum. Denies: Hemoptysis, Wheezing Cardiovascular: Reports: Dyspnea on Exertion. Denies: Chest Pain, Palpitations, Orthopnea, PND, Edema, Lightheadedness Gastrointestinal: Reports: No Symptoms Genitourinary: Reports: No Symptoms - Patient Data Vitals - Most Recent: Last Vital Signs Temp 94.7 F L 09/03/21 13:42 Pulse 79 09/03/21 13:42 Resp 18 09/03/21 13:42 BP 127/73 09/03/21 13:42 Pulse Ox 94 L 09/03/21 13:42 Weight - Most Recent: 152 lb I&O - Last 24 Hours: Intake & Output 09/02/21 09/03/21 09/03/21 22:59 06:59 14:59 Intake Total 240 280 Output Total 425 400 Balance -185 -120 Med Orders - Current: Current Medications Acetaminophen (Acetaminophen 325 Mg Tab) 650 mg PO Q4H PRN PRN Reason: Pain (Mild 1-3)/fever Last Admin: 08/31/21 11:41 Dose: 650 mg Documented by: Hydrocodone Bitart/Acetaminophen (Acetaminophen/Hydrocodone 325-5 Mg Tab) 2 tab PO Q4H PRN PRN Reason: Pain Last Admin: 09/02/21 20:30 Dose: 2 tab Documented by: Cyanocobalamin (Cyanocobalamin (Vitamin B12) 1,000 Mcg Tab) 500 mcg PO DAILY [facility] Last Admin: 09/03/21 08:31 Dose: 500 mcg Documented by: Gabapentin (Gabapentin 100 Mg Cap) 100 mg PO TID [facility] Last Admin: 09/03/21 13:34 Dose: 100 mg Documented by: Lorazepam (Lorazepam 2 Mg/Ml Sdv) 0.5 mg IVPUSH Q4H PRN PRN Reason: Nausea/Vomiting Magnesium Hydroxide (Magnesium Hydroxide 400 Mg/5 Ml Susp 30 Ml Cup) 30 ml PO Q12H PRN PRN Reason: Constipation Melatonin (Melatonin 3 Mg Tab) 9 mg PO BEDTIME PRN PRN Reason: Sleep Last Admin: 08/31/21 02:35 Dose: 9 mg Documented by: Metoprolol Succinate (Metoprolol Succinate 25 Mg Tab.Er) 25 mg PO DAILY [facility] Last Admin: 09/03/21 08:39 Dose: 25 mg Documented by: Multivitamins/Minerals (Multivitamins With Iron/Calcium/Folic Acid/Minerals Tab) 1 tab PO DAILY [facility] Last Admin: 09/03/21 08:31 Dose: 1 tab Documented by: Ondansetron HCl (Ondansetron 4 Mg Tab.Dis) 4 mg PO Q6H PRN PRN Reason: Nausea able to take PO Last Admin: 09/03/21 08:29 Dose: 4 mg Documented by: Ondansetron HCl (Ondansetron 4 Mg/2 Ml Sdv) 4 mg IV Q6H PRN PRN Reason: Nausea/Vomiting Last Admin: 08/29/21 14:17 Dose: 4 mg Documented by: Pantoprazole Sodium (Pantoprazole 40 Mg Tab.Cr) 40 mg PO ACBREAKFAST [facility] Last Admin: 09/03/21 08:31 Dose: 40 mg Documented by: Polyethylene Glycol (Polyethylene Glycol 3350 Powder 17 Gm Packet) 17 gm PO TID PRN PRN Reason: Constipation Rivaroxaban (Rivaroxaban 10 Mg Tab) 20 mg PO DAILY [facility] Last Admin: 09/03/21 08:32 Dose: 20 mg Documented by: Senna/Docusate Sodium (Docusate Sodium/Sennosides 50-8.6 Mg Tab) 1 tab PO BID PRN PRN Reason: Constipation Last Admin: 09/03/21 10:59 Dose: 1 tab Documented by: Verapamil HCl (Verapamil 120 Mg Tab.Er) 240 mg PO DAILY [facility] Last Admin: 09/03/21 08:38 Dose: 240 mg Documented by: Zolpidem Tartrate (Zolpidem 5 Mg Tab) 10 mg PO BEDTIME [facility] Last Admin: 09/02/21 20:30 Dose: 10 mg Documented by: Discontinued Medications Hydrocodone Bitart/Acetaminophen (Acetaminophen/Hydrocodone 325-5 Mg Tab) 1 tab PO Q4H PRN PRN Reason: Pain Last Admin: 08/31/21 08:49 Dose: 1 tab Documented by: Gabapentin (Gabapentin 100 Mg Cap) 200 mg PO ONETIME ONE Stop: 09/01/21 12:01 Last Admin: 09/01/21 11:34 Dose: 200 mg Documented by: Gabapentin (Gabapentin 100 Mg Cap) 100 mg PO TID [facility] Sodium Chloride (Normal Saline) 1,000 mls @ 125 mls/hr IV ASDIRECTED [facility] Stop: 08/28/21 23:29 Last Admin: 08/28/21 15:51 Dose: 125 mls/hr Documented by: Sodium Chloride (Normal Saline) 1,000 mls @ 125 mls/hr IV ASDIRECTED [facility] Stop: 08/29/21 17:46 Lactated Ringer's (Ringers, Lactated) 1,000 mls @ 100 mls/hr IV ASDIRECTED [facility] Stop: 08/30/21 18:16 Last Admin: 08/30/21 11:40 Dose: 100 mls/hr Documented by: Ketorolac Tromethamine (Ketorolac 30 Mg/Ml Sdv) 30 mg IVPUSH ONETIME ONE Stop: 09/01/21 12:01 Ketorolac Tromethamine (Ketorolac 10 Mg Tab) 10 mg PO ONETIME ONE Stop: 09/01/21 12:01 Last Admin: 09/01/21 11:34 Dose: 10 mg Documented by: - Exam Quality Assessment: DVT Prophylaxis General: Alert, Oriented, Cooperative, Moderate Distress Lungs: Clear to Auscultation, Normal Respiratory Effort Cardiovascular: Regular Rate, Regular Rhythm, No Murmurs GI/Abdominal Exam: Soft, Non-Tender, No Organomegaly, No Distention Extremities: Non-Tender, No Pedal Edema - Patient Data Result Diagrams: 08/29/21 04:40 09/01/21 05:30 Sepsis Event Note - Evaluation Sepsis Screening Result: No Definite Risk - Focused Exam Vital Signs: Vital Signs Temp Pulse Pulse Resp BP BP Pulse Ox 09/03/21 13:42 94.7 F L 79 18 127/73 94 L 09/03/21 10:51 96.5 F L 66 18 129/72 95 09/03/21 08:40 95.5 F L 889 H 18 145/93 H 96 09/03/21 08:39 89 145/93 H 09/03/21 08:38 89 145/93 H - Problem List Review Problem List Initiated/Reviewed/Updated: Yes - My Orders Last 24 Hours: My Active Orders 09/02/21 16:36 Gabapentin [Neurontin] 100 mg PO TID 09/03/21 13:20 polyethylene glycoL 3350 [MiraLAX] 17 gm PO TID PRN - Plan Plan:: ASSESSMENT AND PLAN COVID-19 infection-manifestations of weakness, nausea, diarrhea, headache, myalgias and anorexia. Symptoms started on 25 August and his positive test was on the . Not feeling as well today, cough is more productive and associated with chest wall pain. Respiratory status is otherwise stable with no hypoxia at the present time. -Symptomatic management of pain, nausea and diarrhea -Physical therapy -Consider additional treatment if he becomes hypoxic -Patient would like to try to go home if he can gain some more strength over the next couple of days but would consider subacute rehab if he cannot make any gains Chronic back pain with radiculopathy-increased pain in the left buttocks and foot. -Continue hydrocodone -gabapentin 100 mg 3 times daily Rhabdomyolysis-CK level is now normal. -Recheck CK in the morning Coronary artery disease-history of [place]. No active symptoms. -Medical management Paroxysmal atrial fibrillation/flutter-chronically anticoagulated. -Continue medical management Maintenance issues - -DVT prophylaxis-rivaroxaban -GI prophylaxis-PPI -Nutrition-regular Disposition -I anticipate discharge home after the hospital stay Primary care physician -Dr. Jeferson Simpson
[2021-09-03] MEDS: Acetaminophen/HYDROcodone 325-5 MG Tab PO PRN (17:40)
[2021-09-03] MEDS: Zolpidem 5 MG Tab PO SCH (20:11)
[2021-09-04] MEDS: Verapamil 120 MG Tab.ER PO SCH (09:03)
[2021-09-04] MEDS: Pantoprazole 40 MG Tab.CR PO SCH (09:03)
[2021-09-04] MEDS: Cyanocobalamin (Vitamin B12) 1,000 MCG Tab PO SCH (09:04)
[2021-09-04] MEDS: Multivitamins with Iron/Calcium/Folic Acid/Minerals Tab PO SCH (09:04)
[2021-09-04] MEDS: Metoprolol Succinate 25 MG Tab.ER PO SCH (09:04)
[2021-09-04] MEDS: Rivaroxaban 10 MG Tab PO SCH (09:04)
[2021-09-04] MEDS: Gabapentin 100 MG Cap PO SCH ×3 (09:04→20:33)
[2021-09-04] MEDS: Acetaminophen/HYDROcodone 325-5 MG Tab PO PRN ×2 (09:28→23:08)
--- NOTE | 2021-09-04 11:02 | PCM.PN ---
- General Info Date of Service: 09/04/21 Subjective Update: Mr. Valdez has been stable since yesterday and does feel somewhat improved today compared to how he felt yesterday. He has ongoing difficulty with his chronic low back pain. Overall strength and energy level as well as appetite seem to be slowly improving. Functional Status: Reports: Tolerating Diet, Ambulating, Urinating - Review of Systems General: Reports: Weakness, Fatigue. Denies: Fever, Chills Pulmonary: Reports: No Symptoms Cardiovascular: Reports: No Symptoms Gastrointestinal: Reports: No Symptoms Genitourinary: Reports: No Symptoms - Patient Data Vitals - Most Recent: Last Vital Signs Temp 97.3 F 09/04/21 09:02 Pulse 85 09/04/21 09:04 Resp 18 09/04/21 09:02 BP 128/76 09/04/21 09:04 Pulse Ox 95 09/04/21 09:02 Weight - Most Recent: 152 lb I&O - Last 24 Hours: Intake & Output 09/03/21 09/04/21 09/04/21 22:59 06:59 14:59 Intake Total 240 400 Output Total 125 Balance 240 -125 400 Med Orders - Current: Current Medications Acetaminophen (Acetaminophen 325 Mg Tab) 650 mg PO Q4H PRN PRN Reason: Pain (Mild 1-3)/fever Last Admin: 08/31/21 11:41 Dose: 650 mg Documented by: Hydrocodone Bitart/Acetaminophen (Acetaminophen/Hydrocodone 325-5 Mg Tab) 2 tab PO Q4H PRN PRN Reason: Pain Last Admin: 09/04/21 09:28 Dose: 2 tab Documented by: Cyanocobalamin (Cyanocobalamin (Vitamin B12) 1,000 Mcg Tab) 500 mcg PO DAILY [facility] Last Admin: 09/04/21 09:04 Dose: 500 mcg Documented by: Gabapentin (Gabapentin 100 Mg Cap) 100 mg PO TID [facility] Last Admin: 09/04/21 09:04 Dose: 100 mg Documented by: Lidocaine (Lidocaine 5% 700 Mg Patch) 700 mg TRDERM Q24H [facility] Lorazepam (Lorazepam 2 Mg/Ml Sdv) 0.5 mg IVPUSH Q4H PRN PRN Reason: Nausea/Vomiting Magnesium Hydroxide (Magnesium Hydroxide 400 Mg/5 Ml Susp 30 Ml Cup) 30 ml PO Q12H PRN PRN Reason: Constipation Melatonin (Melatonin 3 Mg Tab) 9 mg PO BEDTIME PRN PRN Reason: Sleep Last Admin: 08/31/21 02:35 Dose: 9 mg Documented by: Metoprolol Succinate (Metoprolol Succinate 25 Mg Tab.Er) 25 mg PO DAILY [facility] Last Admin: 09/04/21 09:04 Dose: 25 mg Documented by: Multivitamins/Minerals (Multivitamins With Iron/Calcium/Folic Acid/Minerals Tab) 1 tab PO DAILY [facility] Last Admin: 09/04/21 09:04 Dose: 1 tab Documented by: Ondansetron HCl (Ondansetron 4 Mg Tab.Dis) 4 mg PO Q6H PRN PRN Reason: Nausea able to take PO Last Admin: 09/03/21 08:29 Dose: 4 mg Documented by: Ondansetron HCl (Ondansetron 4 Mg/2 Ml Sdv) 4 mg IV Q6H PRN PRN Reason: Nausea/Vomiting Last Admin: 08/29/21 14:17 Dose: 4 mg Documented by: Pantoprazole Sodium (Pantoprazole 40 Mg Tab.Cr) 40 mg PO ACBREAKFAST [facility] Last Admin: 09/04/21 09:03 Dose: 40 mg Documented by: Polyethylene Glycol (Polyethylene Glycol 3350 Powder 17 Gm Packet) 17 gm PO TID PRN PRN Reason: Constipation Last Admin: 09/04/21 09:29 Dose: 17 gm Documented by: Rivaroxaban (Rivaroxaban 10 Mg Tab) 20 mg PO DAILY [facility] Last Admin: 09/04/21 09:04 Dose: 20 mg Documented by: Senna/Docusate Sodium (Docusate Sodium/Sennosides 50-8.6 Mg Tab) 1 tab PO BID PRN PRN Reason: Constipation Last Admin: 09/03/21 10:59 Dose: 1 tab Documented by: Verapamil HCl (Verapamil 120 Mg Tab.Er) 240 mg PO DAILY [facility] Last Admin: 09/04/21 09:03 Dose: 240 mg Documented by: Zolpidem Tartrate (Zolpidem 5 Mg Tab) 10 mg PO BEDTIME [facility] Last Admin: 09/03/21 20:11 Dose: 10 mg Documented by: Discontinued Medications Hydrocodone Bitart/Acetaminophen (Acetaminophen/Hydrocodone 325-5 Mg Tab) 1 tab PO Q4H PRN PRN Reason: Pain Last Admin: 08/31/21 08:49 Dose: 1 tab Documented by: Gabapentin (Gabapentin 100 Mg Cap) 200 mg PO ONETIME ONE Stop: 09/01/21 12:01 Last Admin: 09/01/21 11:34 Dose: 200 mg Documented by: Gabapentin (Gabapentin 100 Mg Cap) 100 mg PO TID [facility] Sodium Chloride (Normal Saline) 1,000 mls @ 125 mls/hr IV ASDIRECTED [facility] Stop: 08/28/21 23:29 Last Admin: 08/28/21 15:51 Dose: 125 mls/hr Documented by: Sodium Chloride (Normal Saline) 1,000 mls @ 125 mls/hr IV ASDIRECTED [facility] Stop: 08/29/21 17:46 Lactated Ringer's (Ringers, Lactated) 1,000 mls @ 100 mls/hr IV ASDIRECTED [facility] Stop: 08/30/21 18:16 Last Admin: 08/30/21 11:40 Dose: 100 mls/hr Documented by: Ketorolac Tromethamine (Ketorolac 30 Mg/Ml Sdv) 30 mg IVPUSH ONETIME ONE Stop: 09/01/21 12:01 Ketorolac Tromethamine (Ketorolac 10 Mg Tab) 10 mg PO ONETIME ONE Stop: 09/01/21 12:01 Last Admin: 09/01/21 11:34 Dose: 10 mg Documented by: - Exam General: Alert, Oriented, Cooperative, Mild Distress Lungs: Clear to Auscultation, Normal Respiratory Effort Cardiovascular: Regular Rate, Regular Rhythm, No Murmurs GI/Abdominal Exam: Soft, Non-Tender, No Organomegaly, No Distention Extremities: Non-Tender, No Pedal Edema - Patient Data Result Diagrams: 08/29/21 04:40 09/01/21 05:30 Sepsis Event Note - Evaluation Sepsis Screening Result: No Definite Risk - Focused Exam Vital Signs: Vital Signs Temp Pulse Pulse Resp BP BP BP 09/04/21 09:04 85 128/76 09/04/21 09:03 85 138/76 09/04/21 09:02 97.3 F 86 18 128/76 09/04/21 03:00 97.3 F 65 18 108/53 L Pulse Ox 09/04/21 09:04 09/04/21 09:03 09/04/21 09:02 95 09/04/21 03:00 93 L - Problem List Review Problem List Initiated/Reviewed/Updated: Yes - My Orders Last 24 Hours: My Active Orders 09/03/21 13:20 polyethylene glycoL 3350 [MiraLAX] 17 gm PO TID PRN 09/04/21 11:00 Lidocaine 5% [Lidoderm 5%] 700 mg TRDERM Q24H - Plan Plan:: ASSESSMENT AND PLAN COVID-19 infection-manifestations of weakness, nausea, diarrhea, headache, myalgias and anorexia. Symptoms started on 25 August and his positive test was on the . Feeling better today compared to yesterday with less cough and chest wall pain. Appetite and overall energy level seem to be slowly improving. -Symptomatic management of pain, nausea and diarrhea -Physical therapy -Consider additional treatment if he becomes hypoxic -Patient would like to try to go home if he can gain some more strength over the next couple of days but would consider subacute rehab if he cannot make any gains Chronic back pain with radiculopathy-increased pain in the left buttocks and foot. -Lidocaine patch -Continue hydrocodone -gabapentin 100 mg 3 times daily Rhabdomyolysis-CK level is now normal. -Recheck CK in the morning Coronary artery disease-history of [place]. No active symptoms. -Medical management Paroxysmal atrial fibrillation/flutter-chronically anticoagulated. -Continue medical management Maintenance issues - -DVT prophylaxis-rivaroxaban -GI prophylaxis-PPI -Nutrition-regular Disposition -I anticipate discharge home after the hospital stay Primary care physician -Dr. Jeferson Simpson
[2021-09-04] MEDS: Lidocaine 5% 700 MG Patch TRDERM SCH (11:26)
[2021-09-04] MEDS: Zolpidem 5 MG Tab PO SCH (20:33)
[2021-09-05 09:00] VITALS: BP 130/62
[2021-09-05] MEDS: Metoprolol Succinate 25 MG Tab.ER PO SCH (09:00)
[2021-09-05] MEDS: Multivitamins with Iron/Calcium/Folic Acid/Minerals Tab PO SCH (09:01)
[2021-09-05] MEDS: Cyanocobalamin (Vitamin B12) 1,000 MCG Tab PO SCH (09:01)
[2021-09-05] MEDS: Rivaroxaban 10 MG Tab PO SCH (09:01)
[2021-09-05] MEDS: Gabapentin 100 MG Cap PO SCH (09:01)
[2021-09-05] MEDS: Pantoprazole 40 MG Tab.CR PO SCH (09:02)
[2021-09-05] MEDS: Lidocaine 5% 700 MG Patch TRDERM SCH (09:02)
[2021-09-05] MEDS: Verapamil 120 MG Tab.ER PO SCH (09:02)
[2021-09-05 09:03] VITALS: PULSE 80
[2021-09-05] MEDS: Acetaminophen/HYDROcodone 325-5 MG Tab PO PRN (09:24)
--- NOTE | 2021-09-05 09:26 | PCM.DCSUM1 ---
Discharge Summary - Hospital Course Brief History: Mr. Valdez is an 85-year-old gentleman who was admitted through the emergency department with weakness and a fall at home resulting in rhabdomyolysis, secondary to COVID-19 infection. - Discharge Data Discharge Date: 09/05/21 Discharge Disposition: DC/Tfer to SNF 03 Condition: Fair - Referral to Home Health Primary Care Physician: PCP None - Discharge Diagnosis/Problem(s) (1) Chronic lower back pain SNOMED Code(s): 636646577 ICD Code: M54.50 - LOW BACK PAIN, UNSPECIFIED; G89.29 - OTHER CHRONIC PAIN Status: Acute Current Visit: Yes (2) COVID-19 SNOMED Code(s): 685114458 ICD Code: U07.1 - COVID-19 Status: Acute Current Visit: Yes (3) Weakness SNOMED Code(s): 95162681 ICD Code: R53.1 - WEAKNESS Status: Acute Current Visit: Yes (4) Rhabdomyolysis SNOMED Code(s): 923237657 ICD Code: M62.82 - RHABDOMYOLYSIS Status: Acute Current Visit: Yes - Patient Summary/Data Consults: Consultations 08/28/21 15:28 PT Evaluation and Treatment [CONS] Routine Please Evaluate and Treat. PT Reason for Consult: Strengthening This query below is only for informational purposes and is not editable. Hospital Course: Mr. Valdez presented to the emergency room with weakness. He tried to get out of bed and fell to the floor. He was too weak to get up and had to crawl to the kitchen to call for help. He reports 3 or 4 days of headache, nausea, diarrhea and progressive weakness. Appetite has been poor and strength has been declining. He has no energy. He reports significant diffuse myalgias. These have been the most impressive. He describes moderate achy back pain that radiates throughout the entirety of his back. It is a little better when he lays still and more intense when he moves around. Pain pills have helped a little bit. He did not have an obvious injury to his back before the pain started. Diarrhea was better today after being miserable for the last couple of days. No obvious Covid contacts. He was previously vaccinated. Work-up in the emergency room did reveal a positive Covid test. The patient was too weak to stand up and was not safe for discharge home. He does live alone. He was dehydrated and had mild rhabdomyolysis. Because of dehydration and rhabdomyolysis he did receive IV fluids after admission. He was seen by physical therapy and slowly did experience some improvement in his overall weakness during hospitalization. By the time of discharge was still requiring assistance with transfers and ambulation and he will be discharged to the group home for restorative physical therapy and Occupational Therapy. With use of IV fluids since dehydration and rhabdomyolysis did resolve renal function remained stable. Activity will be as tolerated and he will be on a heart healthy diet. - Patient Instructions Diet: Heart Healthy Diet Activity: As Tolerated Other/Special Instructions: Daily physical therapy and Occupational Therapy while at the group home - Discharge Plan *PRESCRIPTION DRUG MONITORING PROGRAM REVIEWED*: Not Applicable *COPY OF PRESCRIPTION DRUG MONITORING REPORT IN PATIENT BRENDA: Not Applicable Prescriptions/Med Rec: Lidocaine 5% [Lidoderm 5%] 700 mg TRDERM DAILY #30 patch Gabapentin [Neurontin] 100 mg PO TID #90 cap Home Medications: Home Meds Acetaminophen/HYDROcodone [HYDROcodone-Acetaminophen 5-500] 5 - 325 mg PO Q4H PRN 06/13/14 [History] Multivitamin [Multi-Vitamin Daily] 1 tab PO DAILY 06/13/14 [History] Omeprazole [priLOSEC OTC] 20 mg PO DAILY 06/13/14 [History] Zolpidem [Ambien] 10 mg PO BEDTIME 06/13/14 [History] Cyanocobalamin (Vitamin B-12) [Vitamin B-12] 500 mcg PO DAILY 07/13/15 [History] Cranberry Conc/Ascorbic Acid [Cranberry Concentrate Softgel] 1 cap PO DAILY 09/23/18 [History] Metoprolol Succinate [Toprol XL] 25 mg PO DAILY 08/28/21 [History] Rivaroxaban [Xarelto] 20 mg PO DAILY 08/28/21 [History] Verapamil [Calan SR] 1 tab PO DAILY 08/28/21 [History] Gabapentin [Neurontin] 100 mg PO TID #90 cap 09/05/21 [Rx] Lidocaine 5% [Lidoderm 5%] 700 mg TRDERM DAILY #30 patch 09/05/21 [Rx] Patient Handouts: Fall Prevention in the Home, Adult, [id number], COVID-19, Weakness, [id number] - Discharge Summary/Plan Comment DC Time >30 min.: No Total # of Minutes for Discharge Time: 15 - Patient Data Vitals - Most Recent: Last Vital Signs Temp 97.9 F 09/05/21 08:00 Pulse 80 09/05/21 09:02 Resp 16 09/05/21 08:00 BP 130/62 09/05/21 09:02 Pulse Ox 95 09/05/21 08:00 Weight - Most Recent: 152 lb I&O - Last 24 hours: Intake & Output 09/04/21 09/05/21 09/05/21 22:59 06:59 14:59 Intake Total 400 300 Output Total 125 Balance 400 175 Med Orders - Current: Current Medications Acetaminophen (Acetaminophen 325 Mg Tab) 650 mg PO Q4H PRN PRN Reason: Pain (Mild 1-3)/fever Last Admin: 08/31/21 11:41 Dose: 650 mg Documented by: Hydrocodone Bitart/Acetaminophen (Acetaminophen/Hydrocodone 325-5 Mg Tab) 2 tab PO Q4H PRN PRN Reason: Pain Last Admin: 09/04/21 23:08 Dose: 2 tab Documented by: Cyanocobalamin (Cyanocobalamin (Vitamin B12) 1,000 Mcg Tab) 500 mcg PO DAILY [facility] Last Admin: 09/05/21 09:01 Dose: 500 mcg Documented by: Gabapentin (Gabapentin 100 Mg Cap) 100 mg PO TID [facility] Last Admin: 09/05/21 09:01 Dose: 100 mg Documented by: Lidocaine (Lidocaine 5% 700 Mg Patch) 700 mg TRDERM DAILY [facility] Last Admin: 09/05/21 09:02 Dose: 700 mg Documented by: Lorazepam (Lorazepam 2 Mg/Ml Sdv) 0.5 mg IVPUSH Q4H PRN PRN Reason: Nausea/Vomiting Magnesium Hydroxide (Magnesium Hydroxide 400 Mg/5 Ml Susp 30 Ml Cup) 30 ml PO Q12H PRN PRN Reason: Constipation Melatonin (Melatonin 3 Mg Tab) 9 mg PO BEDTIME PRN PRN Reason: Sleep Last Admin: 08/31/21 02:35 Dose: 9 mg Documented by: Metoprolol Succinate (Metoprolol Succinate 25 Mg Tab.Er) 25 mg PO DAILY [facility] Last Admin: 09/05/21 09:00 Dose: 25 mg Documented by: Miscellaneous Information (Remove Patch) 1 ea TRDERM BEDTIME [facility] Last Admin: 09/04/21 20:34 Dose: Not Given Documented by: Multivitamins/Minerals (Multivitamins With Iron/Calcium/Folic Acid/Minerals Tab) 1 tab PO DAILY [facility] Last Admin: 09/05/21 09:01 Dose: 1 tab Documented by: Ondansetron HCl (Ondansetron 4 Mg Tab.Dis) 4 mg PO Q6H PRN PRN Reason: Nausea able to take PO Last Admin: 09/03/21 08:29 Dose: 4 mg Documented by: Ondansetron HCl (Ondansetron 4 Mg/2 Ml Sdv) 4 mg IV Q6H PRN PRN Reason: Nausea/Vomiting Last Admin: 08/29/21 14:17 Dose: 4 mg Documented by: Pantoprazole Sodium (Pantoprazole 40 Mg Tab.Cr) 40 mg PO ACBREAKFAST [facility] Last Admin: 09/05/21 09:02 Dose: 40 mg Documented by: Polyethylene Glycol (Polyethylene Glycol 3350 Powder 17 Gm Packet) 17 gm PO TID PRN PRN Reason: Constipation Last Admin: 09/04/21 09:29 Dose: 17 gm Documented by: Rivaroxaban (Rivaroxaban 10 Mg Tab) 20 mg PO DAILY [facility] Last Admin: 09/05/21 09:01 Dose: 20 mg Documented by: Senna/Docusate Sodium (Docusate Sodium/Sennosides 50-8.6 Mg Tab) 1 tab PO BID PRN PRN Reason: Constipation Last Admin: 09/05/21 09:00 Dose: 1 tab Documented by: Verapamil HCl (Verapamil 120 Mg Tab.Er) 240 mg PO DAILY [facility] Last Admin: 09/05/21 09:02 Dose: 240 mg Documented by: Zolpidem Tartrate (Zolpidem 5 Mg Tab) 10 mg PO BEDTIME [facility] Last Admin: 09/04/21 20:33 Dose: 10 mg Documented by: Discontinued Medications Hydrocodone Bitart/Acetaminophen (Acetaminophen/Hydrocodone 325-5 Mg Tab) 1 tab PO Q4H PRN PRN Reason: Pain Last Admin: 08/31/21 08:49 Dose: 1 tab Documented by: Gabapentin (Gabapentin 100 Mg Cap) 200 mg PO ONETIME ONE Stop: 09/01/21 12:01 Last Admin: 09/01/21 11:34 Dose: 200 mg Documented by: Gabapentin (Gabapentin 100 Mg Cap) 100 mg PO TID [facility] Sodium Chloride (Normal Saline) 1,000 mls @ 125 mls/hr IV ASDIRECTED [facility]ANDRO Stop: 08/28/21 23:29 Last Admin: 08/28/21 15:51 Dose: 125 mls/hr Documented by: Sodium Chloride (Normal Saline) 1,000 mls @ 125 mls/hr IV ASDIRECTED LEANDRO Stop: 08/29/21 17:46 Lactated Ringer's (Ringers, Lactated) 1,000 mls @ 100 mls/hr IV ASDIRECTED LEANDRO Stop: 08/30/21 18:16 Last Admin: 08/30/21 11:40 Dose: 100 mls/hr Documented by: Ketorolac Tromethamine (Ketorolac 30 Mg/Ml Sdv) 30 mg IVPUSH ONETIME ONE Stop: 09/01/21 12:01 Ketorolac Tromethamine (Ketorolac 10 Mg Tab) 10 mg PO ONETIME ONE Stop: 09/01/21 12:01 Last Admin: 09/01/21 11:34 Dose: 10 mg Documented by: - Exam General: Reports: Alert, Oriented, Cooperative, Mild Distress Lungs: Reports: Clear to Auscultation, Normal Respiratory Effort Cardiovascular: Reports: Regular Rate, Regular Rhythm, No Murmurs GI/Abdominal Exam: Soft, Non-Tender, No Organomegaly, No Distention Extremities: Non-Tender, No Pedal Edema
== END 2021-09-05 10:31 | DRG 178 ==
LOC: JP.ED 11:26 → JP.2SS 14:52
PROVIDERS: ADMIT Internal Medicine; ATTEND Hospitalist
PROC: 8E0ZXY6 Isolation (ICD-10-PCS; principal; 2021-08-28)
DX: U07.1 COVID-19 (principal); R53.1 Weakness; M62.82 Rhabdomyolysis; I48.92 Unspecified atrial flutter; E86.0 Dehydration; I25.10 Atherosclerotic heart disease of native coronary artery without angina pectoris; Z66 Do not resuscitate; M54.10 Radiculopathy, site unspecified; M54.50 Low back pain, unspecified; G89.29 Other chronic pain; H54.7 Unspecified visual loss; H53.2 Diplopia; I10 Essential (primary) hypertension; K21.9 Gastro-esophageal reflux disease without esophagitis; W19.XXXA Unspecified fall, initial encounter; S41.102A Unspecified open wound of left upper arm, initial encounter; F41.9 Anxiety disorder, unspecified; F32.9 Major depressive disorder, single episode, unspecified; M19.90 Unspecified osteoarthritis, unspecified site; I48.0 Paroxysmal atrial fibrillation; Z79.899 Other long term (current) drug therapy; I25.2 Old myocardial infarction; Z95.0 Presence of cardiac pacemaker; Z98.49 Cataract extraction status, unspecified eye; Z90.49 Acquired absence of other specified parts of digestive tract; Z79.01 Long term (current) use of anticoagulants; Z85.46 Personal history of malignant neoplasm of prostate; Z85.828 Personal history of other malignant neoplasm of skin
CPT/HCPCS: 36415; 80048; 82550; 85025; 99285; U0002; 85027; 85379; 86140; 97110-GP; 97140-GP; 97162-GP; 97530-GP; A9270-GY; J2405; J7030; J7120

== ENCOUNTER 2023-06-29 15:45 | Emergency (ER) | payer MEDICARE, BC ==
[2023-06-29 16:38] VITALS: BP 140/69; PULSE 64
== END 2023-06-29 18:40 | disposition home or self-care (01) ==
LOC: JP.ED 15:45
DX: S00.83XA Contusion of other part of head, initial encounter (principal); S70.01XA Contusion of right hip, initial encounter; S00.01XA Abrasion of scalp, initial encounter; I10 Essential (primary) hypertension; I25.2 Old myocardial infarction; K21.9 Gastro-esophageal reflux disease without esophagitis; Z95.0 Presence of cardiac pacemaker; Z87.891 Personal history of nicotine dependence; W18.09XA Striking against other object with subsequent fall, initial encounter; Y92.009 Unspecified place in unspecified non-institutional (private) residence as the place of occurrence of the external cause
CPT/HCPCS: 70450; 99283

== ENCOUNTER 2023-08-03 09:17 | Emergency (ER) | payer MEDICARE, BC ==
[2023-08-03] MEDS ORDERED: Bacitracin Oint 1 GM U/D Packet TOP ONE (10:43)
[2023-08-03 11:47] VITALS: BP 128/79; PULSE 67
== END 2023-08-03 11:35 | disposition home or self-care (01) ==
LOC: JP.ED 09:17
DX: S61.412A Laceration without foreign body of left hand, initial encounter (principal); S00.01XA Abrasion of scalp, initial encounter; S00.31XA Abrasion of nose, initial encounter; I10 Essential (primary) hypertension; I25.2 Old myocardial infarction; K21.9 Gastro-esophageal reflux disease without esophagitis; Z79.01 Long term (current) use of anticoagulants; Z86.16 Personal history of COVID-19; Z87.891 Personal history of nicotine dependence; Z79.899 Other long term (current) drug therapy; W18.30XA Fall on same level, unspecified, initial encounter
CPT/HCPCS: 70450; 70450-26; 99283

== ENCOUNTER 2024-07-17 06:30 | Emergency (ER) | payer MEDICARE, BC ==
[2024-07-17 06:48] LABS: BASOPHILS PERCENT AUTO 0.3 % (0.1-1.3); EOSINOPHILS ABSOLUTE AUTO 0.13 K/uL (0.00-0.40); EOSINOPHILS PERCENT AUTO 1.8 % (0.0-5.4); HEMATOCRIT 38.8 % (38.4-49.7); HEMOGLOBIN 13.5 g/dL (12.9-16.9); IMMATURE GRAN PERCENT AUTO 0.1 % (0.0-0.7); MEAN CORPUSCULAR HEMOGLOBIN 32.8 pg (31.6-35.5); MEAN CORPUSCULAR HGB CONC 34.8 g/dL (31.6-35.5); MEAN CORPUSCULAR VOLUME 94.4 fL (81.4-99.0); MONOCYTES ABSOLUTE AUTO 0.52 K/uL (0.20-0.90); MONOCYTES PERCENT AUTO 7.4 % (3.3-12.6); NEUTROPHILS ABSOLUTE AUTO 5.19 K/uL (1.0-7.6); NEUTROPHILS PERCENT AUTO 73.4 % (40.0-78.1); PLATELET COUNT,PLT 151 K/uL (130-375); RED BLOOD CELL COUNT 4.11 M/uL (4.14-5.76); WHITE BLOOD CELL COUNT,WBC 7.1 K/uL (3.2-11.0)
[2024-07-17 06:55] LABS: BASOPHILS ABSOLUTE AUTO 0.02 K/uL (0.00-0.10); IMMATURE GRAN ABSOLUTE AUTO 0.01 K/uL (0.00-0.23)
[2024-07-17 07:00] VITALS: BP 123/68; PULSE 60
[2024-07-17 07:01] LABS: ANION GAP 12.3 mmol/L (5.0-14.0); CREATININE 1.4 mg/dL (0.8-1.3); EST CRCL DRUG DOSING (CG) 36.73 mL/min; MAGNESIUM 1.8 mg/dL (1.8-2.4); POTASSIUM,K 3.8 mmol/L (3.6-5.2)
[2024-07-17] MEDS: Lidocaine 1% with EPINEPHrine 1:100,000 50 ML MDV SUBCUT STA (09:05)
[2024-07-17] MEDS: Bacitracin Oint 1 GM U/D Packet TOP ONE (09:30)
[2024-07-17 10:35] LABS: APPEARANCE,URINE CLEAR (CLEAR); BILIRUBIN,URINE NEGATIVE (NEGATIVE); COLOR,URINE YELLOW (YELLOW); GLUCOSE,URINE NEGATIVE (NEGATIVE); KETONES,URINE NEGATIVE (NEGATIVE); LEUKOCYTE ESTERASE,URINE NEGATIVE (NEGATIVE); NITRITE,URINE NEGATIVE (NEGATIVE); OCCULT BLOOD,URINE SMALL (NEGATIVE); PROTEIN,URINE NEGATIVE (NEGATIVE); UROBILINOGEN,URINE 0.2 EU/dL (0.2-1.0)
[2024-07-17 10:40] LABS: AMORPHOUS SEDIMENT,URINE NOT SEEN; BACTERIA,URINE NOT SEEN; EPITHELIAL CELLS,URINE NOT SEEN; MUCUS,URINE NOT SEEN; RBC,URINE 0-5 (0-5); WBC,URINE 0-5 (0-5)
== END 2024-07-17 11:25 ==
LOC: JP.ED 06:30
DX: S01.01XA Laceration without foreign body of scalp, initial encounter (principal); I10 Essential (primary) hypertension; I25.10 Atherosclerotic heart disease of native coronary artery without angina pectoris; I25.2 Old myocardial infarction; Z95.0 Presence of cardiac pacemaker; K21.9 Gastro-esophageal reflux disease without esophagitis; Z90.49 Acquired absence of other specified parts of digestive tract; Z79.899 Other long term (current) drug therapy; W19.XXXA Unspecified fall, initial encounter
CPT/HCPCS: 12002; 36415; 70450; 72125; 76377; 80048; 81001; 83735; 85025; 99285; U0002; 99283

== ENCOUNTER 2025-09-21 10:01 | Emergency (ER) | payer BC, MEDICARE ==
[2025-09-21 10:33] LABS: BASOPHILS ABSOLUTE AUTO 0.03 K/uL (0.00-0.10); BASOPHILS PERCENT AUTO 0.6 % (0.1-1.3); EOSINOPHILS ABSOLUTE AUTO 0.13 K/uL (0.00-0.40); EOSINOPHILS PERCENT AUTO 2.4 % (0.0-5.4); IMMATURE GRAN PERCENT AUTO 0.2 % (0.0-0.7); LYMPHOCYTES ABSOLUTE AUTO 1.74 K/uL (0.8-3.3); LYMPHOCYTES PERCENT AUTO 32.5 % (11.4-47.7); MONOCYTES ABSOLUTE AUTO 0.36 K/uL (0.20-0.90); MONOCYTES PERCENT AUTO 6.7 % (3.3-12.6); NEUTROPHILS ABSOLUTE AUTO 3.09 K/uL (1.0-7.6); NEUTROPHILS PERCENT AUTO 57.6 % (40.0-78.1); PLATELET COUNT,PLT 162 K/uL (130-375); RED BLOOD CELL COUNT 4.26 M/uL (4.14-5.76); WHITE BLOOD CELL COUNT,WBC 5.4 K/uL (3.2-11.0)
[2025-09-21 10:34] LABS: IMMATURE GRAN ABSOLUTE AUTO 0.01 K/uL (0.00-0.23)
[2025-09-21 10:59] LABS: A/G RATIO 0.8 (1.2-2.2); ALANINE AMINOTRANSFERASE,ALT 18 U/L (12-78); ASPARTATE AMNIOTRANSFERASE,AST 18 U/L (15-37); BILIRUBIN TOTAL 0.6 mg/dL (0.2-1.0); BLOOD UREA NITROGEN,BUN 22 mg/dL (7-18); CARBON DIOXIDE,CO2 31 mmol/L (21-32); CHLORIDE,CL 105 mmol/L (100-108); CREATININE 1.4 mg/dL (0.8-1.3); EST CRCL DRUG DOSING (CG) 39.78 mL/min; ESTIMATED GFR 48 mL/min (>60); GLUCOSE RANDOM 117 mg/dL (74-106); POTASSIUM,K 4.0 mmol/L (3.6-5.2); PROTEIN TOTAL,TP 7.0 g/dL (6.4-8.2); SODIUM,NA 141 mmol/L (140-148)
[2025-09-21 11:14] VITALS: BP 121/75; PULSE 71
[2025-09-21 12:35] LABS: APPEARANCE,URINE CLEAR (CLEAR); GLUCOSE,URINE NEGATIVE (NEGATIVE); OCCULT BLOOD,URINE TRACE-INTACT (NEGATIVE)
[2025-09-21 12:41] LABS: SQUAMOUS EPITHELIAL CELLS,UR FEW /HPF
== END 2025-09-21 14:25 | disposition home or self-care (01) ==
LOC: JP.ED 10:01 → EEVIPCON 10:01 → JP.ED 14:25
DX: T88.1XXA Other complications following immunization, not elsewhere classified, initial encounter (principal); E86.0 Dehydration; I25.10 Atherosclerotic heart disease of native coronary artery without angina pectoris; I10 Essential (primary) hypertension; I25.2 Old myocardial infarction; K21.9 Gastro-esophageal reflux disease without esophagitis; Z90.49 Acquired absence of other specified parts of digestive tract; Z79.01 Long term (current) use of anticoagulants; Z79.899 Other long term (current) drug therapy
CPT/HCPCS: 36415; 70450; 71045; 80053; 81001; 83605; 84484; 85025; 93005; 96360; 96361; 99285; J7030

== ENCOUNTER 2025-10-12 09:51 | Emergency (ER) | payer MEDICARE ==
[2025-10-12 10:13] LABS: BASOPHILS PERCENT AUTO 0.2 % (0.1-1.3); EOSINOPHILS PERCENT AUTO 0.1 % (0.0-5.4); IMMATURE GRAN PERCENT AUTO 0.2 % (0.0-0.7); LYMPHOCYTES ABSOLUTE AUTO 0.62 K/uL (0.8-3.3); LYMPHOCYTES PERCENT AUTO 7.1 % (11.4-47.7); MONOCYTES ABSOLUTE AUTO 0.58 K/uL (0.20-0.90); MONOCYTES PERCENT AUTO 6.7 % (3.3-12.6); NEUTROPHILS ABSOLUTE AUTO 7.45 K/uL (1.0-7.6); NEUTROPHILS PERCENT AUTO 85.7 % (40.0-78.1); PLATELET COUNT,PLT 176 K/uL (130-375); RED BLOOD CELL COUNT 4.36 M/uL (4.14-5.76); WHITE BLOOD CELL COUNT,WBC 8.7 K/uL (3.2-11.0)
[2025-10-12 10:15] LABS: BASOPHILS ABSOLUTE AUTO 0.02 K/uL (0.00-0.10); EOSINOPHILS ABSOLUTE AUTO 0.01 K/uL (0.00-0.40); IMMATURE GRAN ABSOLUTE AUTO 0.02 K/uL (0.00-0.23)
[2025-10-12 10:25] LABS: APPEARANCE,URINE CLEAR (CLEAR); GLUCOSE,URINE NEGATIVE (NEGATIVE); OCCULT BLOOD,URINE MODERATE (NEGATIVE)
[2025-10-12 10:31] LABS: INR 1.2
[2025-10-12 10:44] LABS: SQUAMOUS EPITHELIAL CELLS,UR FEW /HPF
[2025-10-12 10:45] LABS: BLOOD UREA NITROGEN,BUN 20 mg/dL (7-18); CARBON DIOXIDE,CO2 27 mmol/L (21-32); CHLORIDE,CL 104 mmol/L (100-108); GLUCOSE RANDOM 117 mg/dL (74-106); POTASSIUM,K 4.3 mmol/L (3.6-5.2); SODIUM,NA 140 mmol/L (140-148)
[2025-10-12 10:46] LABS: A/G RATIO 0.9 (1.2-2.2); ALANINE AMINOTRANSFERASE,ALT 34 U/L (12-78); ASPARTATE AMNIOTRANSFERASE,AST 47 U/L (15-37); BILIRUBIN TOTAL 1.0 mg/dL (0.2-1.0); CREATININE 1.5 mg/dL (0.8-1.3); ESTIMATED GFR 45 mL/min (>60); PROTEIN TOTAL,TP 7.4 g/dL (6.4-8.2)
[2025-10-12] MEDS: Bacitracin Oint 1 GM U/D Packet TOP ONE (13:26)
[2025-10-12 13:27] VITALS: BP 137/82; PULSE 84
== END 2025-10-12 15:24 | disposition home or self-care (01) ==
LOC: JP.ED 09:51
DX: E86.0 Dehydration (principal); I10 Essential (primary) hypertension; Z79.899 Other long term (current) drug therapy; Z90.49 Acquired absence of other specified parts of digestive tract
CPT/HCPCS: 36415; 70450; 71045; 80053; 81001; 82550; 82947; 83605; 85025; 85610; 87040; 93005; 93010; 96360; 96361; 99284; 99285; J7030